=== PATIENT | female | born 1930 | race Caucasian/White ===

== ENCOUNTER 2017-09-01 11:32 | Inpatient (IN) ==
[2017-09-01 12:26] LABS: Basophils % 0.7 % (0.0-0.8); Eosinophils # 0.1 10*3/uL (0.0-0.87); Eosinophils % 1.4 % (0.00-10.9); Hematocrit 25.3 VOL% (35.7-47.0); Hemoglobin 7.6 GM/DL (12.0-16.0); Immature Granulocytes % 0.3 %; Immature Granulocytes Absolute 0.02 #; Lymphocytes # 1.4 10*3/uL (1.4-4.0); Lymphocytes % 24.3 % (21.3-54.2); Mean Corpuscular Hemoglobin 25 PG (27-34); Mean Corpuscular Volume 83.8 FL (87-102); Mean Platelet Volume 10.4 FL (9.6-12.0); Monocytes # 0.5 10*3/uL (0.11-0.8); Neutrophils # 3.8 10*3/uL (1.4-7.4); Neutrophils % 65.3 % (38.7-73.9); Platelet Count 169 T/CUMM (130-400); Red Blood Count 3.02 MC/CUMM (3.8-5.5); Red Cell Distribution Width 16.5 % (9.3-17.3); White Blood Count 5.8 T/CUMM (4-12)
[2017-09-01 12:33] LABS: INR 1.4; PT Patient Result 14.4 SECS
[2017-09-01 12:45] LABS: Apearance,Urine Slightly Hazy (Clear); Bacteria,Urine Many /HPF (Few); Bilirubin,Urine Negative (Negative); Blood, Urine Negative (Negative); Glucose,Urine (UA) Negative (Negative); Hyaline Casts,Urine 29 /LPF (0-3); Ketones,Urine Negative (Negative); Mucus,Urine Few /LPF (Occasional); Nitrite,Urine Positive (Negative); Protein,Urine Negative; RBC,Urine <1 /HPF (0-4); Squamous Epithelial Cell,Urine Occasional /HPF (0-10); Urine Color Yellow (Yellow); Urine Specific Gravity 1.014 (1.001-1.035); Urine Urobilinogen < 2.0 EU/DL (0.2-1.0); WBC,Urine 2 /HPF (0-6)
[2017-09-01 13:26] LABS: Albumin 2.5 G/DL (3.4-5.0); Bilirubin,Total 0.4 MG/DL (0.2-1.0); Magnesium 2.2 MG/DL (1.8-2.4); Osmolality,Calculated 292.4 MOS/KG (273-304); Potassium 4.2 MMOL/L (3.5-5.1); Total Protein 5.4 G/DL (6.4-8.3)
[2017-09-01] MEDS ORDERED: LEVOFLOXACIN INJ 500 MG in PREMIX 1 EACH IV STA (13:28)
[2017-09-01] MEDS ORDERED: SODIUM CHLORIDE 0.9% 1,000 ML IV PRN (13:37)
[2017-09-01] MEDS ORDERED: cefTRIAXone 1,000 MG VIAL IM SCH (14:00)
[2017-09-01] MEDS ORDERED: LEVOFLOXACIN INJ 100 ML IV ONE (14:01)
[2017-09-01] MEDS ORDERED: FUROSEMIDE 20 MG/2 ML VIAL IV ONE ×2 (14:12→22:30)
[2017-09-01] MEDS ORDERED: clonazePAM 0.5 MG TABLET PO PRN (16:11)
[2017-09-01] MEDS ORDERED: cefTRIAXone 1,000 MG VIAL IV SCH (16:15)
[2017-09-01] MEDS: cefTRIAXone 1,000 MG in SYRINGE 1 EACH IV SCH (17:19)
[2017-09-01] MEDS ORDERED: APIXABAN 5 MG TABLET PO SCH (21:00)
[2017-09-01] MEDS: LOVASTATIN 20 MG TABLET PO SCH (21:43)
[2017-09-01] MEDS: CARVEDILOL 3.125 MG TABLET PO SCH (21:43)
[2017-09-01] MEDS: ZINC SULFATE 220 MG CAPSULE PO SCH (21:43)
[2017-09-01] MEDS: GABAPENTIN 300 MG CAPSULE PO SCH (21:43)
[2017-09-02 05:55] LABS: Basophils % 0.4 % (0.0-0.8); Eosinophils # 0.1 10*3/uL (0.0-0.87); Eosinophils % 0.7 % (0.00-10.9); Hematocrit 29.3 VOL% (35.7-47.0); Hemoglobin 9.3 GM/DL (12.0-16.0); Immature Granulocytes % 0.3 %; Immature Granulocytes Absolute 0.02 #; Lymphocytes # 1.2 10*3/uL (1.4-4.0); Lymphocytes % 17.1 % (21.3-54.2); Mean Corpuscular HGB Conc 31.7 GM/DL (32-36); Mean Corpuscular Hemoglobin 26 PG (27-34); Mean Corpuscular Volume 81.6 FL (87-102); Mean Platelet Volume 10.6 FL (9.6-12.0); Monocytes # 0.7 10*3/uL (0.11-0.8); Monocytes % 9.1 % (1.7-12.7); Neutrophils # 5.2 10*3/uL (1.4-7.4); Neutrophils % 72.4 % (38.7-73.9); Platelet Count 175 T/CUMM (130-400); Red Blood Count 3.59 MC/CUMM (3.8-5.5); Red Cell Distribution Width 15.3 % (9.3-17.3); White Blood Count 7.2 T/CUMM (4-12)
[2017-09-02] MEDS ORDERED: LEVOTHYROXINE 150 MCG TABLET PO SCH (06:30)
[2017-09-02 06:34] LABS: Albumin 2.3 G/DL (3.4-5.0); Bilirubin,Total 0.8 MG/DL (0.2-1.0); Calcium 7.8 MG/DL (8.5-10.1); Magnesium 1.9 MG/DL (1.8-2.4); Osmolality,Calculated 289.6 MOS/KG (273-304); Phosphorous 3.4 MG/DL (2.5-4.9); Potassium 4.1 MMOL/L (3.5-5.1); Total Protein 4.9 G/DL (6.4-8.3)
[2017-09-02] MEDS ORDERED: LEVOTHYROXINE 175 MCG TABLET PO SCH (07:00)
[2017-09-02] MEDS ORDERED: FUROSEMIDE 40 MG TABLET PO SCH (09:00)
[2017-09-02] MEDS: FUROSEMIDE 40 MG/4 ML VIAL IV SCH (09:15)
[2017-09-02] MEDS: cefTRIAXone 1,000 MG in SYRINGE 1 EACH IV SCH (09:15)
[2017-09-02] MEDS ORDERED: TUBERCULIN SKIN TEST 0.1 ML SYRINGE INTRADERM ONE (11:00)
[2017-09-02] MEDS: CARVEDILOL 3.125 MG TABLET PO SCH ×2 (12:19→20:58)
[2017-09-02] MEDS ORDERED: PROPOFOL 200 MG/20 ML VIAL IV ONE (12:47)
[2017-09-02] MEDS ORDERED: LIDOCAINE 1% 5 ML VIAL ONE (12:47)
[2017-09-02] MEDS: CHOLECALCIFEROL 400 UNIT TABLET PO SCH (14:33)
[2017-09-02] MEDS: SPIRONOLACTONE 25 MG TABLET PO SCH (14:33)
[2017-09-02] MEDS: MULTIVITAMIN (CENTRUM) TABLET PO SCH (14:33)
[2017-09-02] MEDS: AMIODARONE 200 MG TABLET PO SCH (14:34)
[2017-09-02] MEDS: BISACODYL 5 MG TABLET PO SCH ×2 (14:34→20:59)
[2017-09-02] MEDS: LEVOTHYROXINE 175 MCG TABLET PO SCH (14:39)
[2017-09-02] MEDS ORDERED: POLYETHYLENE GLYCOL POWDER 255 GM BOTTLE PO ONE (17:00)
[2017-09-02] MEDS: ZINC SULFATE 220 MG CAPSULE PO SCH (20:58)
[2017-09-02] MEDS: LOVASTATIN 20 MG TABLET PO SCH (20:58)
[2017-09-02] MEDS: GABAPENTIN 300 MG CAPSULE PO SCH (20:59)
[2017-09-02] MEDS ORDERED: MAGNESIUM CITRATE 300 ML BOTTLE PO ONE (21:00)
[2017-09-03] MEDS ORDERED: ZINC OXIDE PASTE 113 GM TUBE TOP PRN (01:23)
[2017-09-03] MEDS: BISACODYL 5 MG TABLET PO SCH (04:48)
[2017-09-03 05:29] LABS: Basophils % 0.4 % (0.0-0.8); Eosinophils # 0.1 10*3/uL (0.0-0.87); Eosinophils % 0.6 % (0.00-10.9); Hematocrit 30.8 VOL% (35.7-47.0); Hemoglobin 9.6 GM/DL (12.0-16.0); Immature Granulocytes % 0.2 %; Immature Granulocytes Absolute 0.02 #; Lymphocytes # 1.7 10*3/uL (1.4-4.0); Lymphocytes % 20.1 % (21.3-54.2); Mean Corpuscular HGB Conc 31.2 GM/DL (32-36); Mean Corpuscular Hemoglobin 26 PG (27-34); Mean Corpuscular Volume 82.8 FL (87-102); Mean Platelet Volume 10.5 FL (9.6-12.0); Monocytes # 0.7 10*3/uL (0.11-0.8); Monocytes % 8.8 % (1.7-12.7); Neutrophils # 5.9 10*3/uL (1.4-7.4); Neutrophils % 69.9 % (38.7-73.9); Platelet Count 173 T/CUMM (130-400); Red Blood Count 3.72 MC/CUMM (3.8-5.5); Red Cell Distribution Width 15.9 % (9.3-17.3); White Blood Count 8.4 T/CUMM (4-12)
[2017-09-03 06:08] LABS: Albumin 2.2 G/DL (3.4-5.0); Bilirubin,Total 0.6 MG/DL (0.2-1.0); Calcium 7.7 MG/DL (8.5-10.1); Magnesium 1.9 MG/DL (1.8-2.4); Osmolality,Calculated 288.6 MOS/KG (273-304); Phosphorous 3.5 MG/DL (2.5-4.9); Potassium 3.7 MMOL/L (3.5-5.1); Total Protein 4.9 G/DL (6.4-8.3)
[2017-09-03] MEDS: LEVOTHYROXINE 175 MCG TABLET PO SCH (06:57)
[2017-09-03] MEDS: SPIRONOLACTONE 25 MG TABLET PO SCH (09:47)
[2017-09-03] MEDS: CARVEDILOL 3.125 MG TABLET PO SCH ×2 (09:48→21:57)
[2017-09-03] MEDS: CHOLECALCIFEROL 400 UNIT TABLET PO SCH (09:48)
[2017-09-03] MEDS: MULTIVITAMIN (CENTRUM) TABLET PO SCH (09:48)
[2017-09-03] MEDS: FUROSEMIDE 40 MG/4 ML VIAL IV SCH (09:48)
[2017-09-03] MEDS: AMIODARONE 200 MG TABLET PO SCH (09:48)
[2017-09-03] MEDS: cefTRIAXone 1,000 MG in SYRINGE 1 EACH IV SCH (09:48)
[2017-09-03] MEDS: COLESTIPOL 1 GM TABLET PO SCH ×2 (09:48→21:57)
[2017-09-03] MEDS ORDERED: PROPOFOL 200 MG/20 ML VIAL IV ONE (10:10)
[2017-09-03] MEDS ORDERED: LIDOCAINE 2% 5 ML VIAL ONE (10:10)
[2017-09-03] MEDS: CIPROFLOXACIN INJ 400 MG in PREMIX 1 EACH IV SCH (12:31)
[2017-09-03] MEDS: ZINC SULFATE 220 MG CAPSULE PO SCH (21:57)
[2017-09-03] MEDS: GABAPENTIN 300 MG CAPSULE PO SCH (21:57)
[2017-09-03] MEDS: LOVASTATIN 20 MG TABLET PO SCH (21:58)
[2017-09-04] MEDS: CIPROFLOXACIN INJ 400 MG in PREMIX 1 EACH IV SCH ×2 (01:59→13:53)
[2017-09-04 05:53] LABS: Basophils % 0.4 % (0.0-0.8); Eosinophils # 0.1 10*3/uL (0.0-0.87); Eosinophils % 0.9 % (0.00-10.9); Hematocrit 31.3 VOL% (35.7-47.0); Hemoglobin 9.7 GM/DL (12.0-16.0); Immature Granulocytes % 0.3 %; Immature Granulocytes Absolute 0.03 #; Lymphocytes # 1.9 10*3/uL (1.4-4.0); Lymphocytes % 21.2 % (21.3-54.2); Mean Corpuscular Hemoglobin 25 PG (27-34); Mean Corpuscular Volume 81.9 FL (87-102); Mean Platelet Volume 10.9 FL (9.6-12.0); Monocytes # 0.8 10*3/uL (0.11-0.8); Monocytes % 9.2 % (1.7-12.7); Neutrophils # 6.1 10*3/uL (1.4-7.4); Platelet Count 178 T/CUMM (130-400); Red Blood Count 3.82 MC/CUMM (3.8-5.5); Red Cell Distribution Width 16.1 % (9.3-17.3); White Blood Count 8.9 T/CUMM (4-12)
[2017-09-04] MEDS: LEVOTHYROXINE 175 MCG TABLET PO SCH (06:08)
[2017-09-04 06:26] LABS: Albumin 2.1 G/DL (3.4-5.0); Bilirubin,Total 0.6 MG/DL (0.2-1.0); Calcium 7.4 MG/DL (8.5-10.1); Magnesium 1.7 MG/DL (1.8-2.4); Osmolality,Calculated 283.8 MOS/KG (273-304); Phosphorous 2.9 MG/DL (2.5-4.9); Potassium 3.4 MMOL/L (3.5-5.1); Total Protein 4.7 G/DL (6.4-8.3)
[2017-09-04] MEDS: MULTIVITAMIN (CENTRUM) TABLET PO SCH (10:25)
[2017-09-04] MEDS: SPIRONOLACTONE 25 MG TABLET PO SCH (10:25)
[2017-09-04] MEDS: CARVEDILOL 3.125 MG TABLET PO SCH ×2 (10:26→22:05)
[2017-09-04] MEDS: COLESTIPOL 1 GM TABLET PO SCH ×2 (10:26→22:05)
[2017-09-04] MEDS: FUROSEMIDE 40 MG/4 ML VIAL IV SCH ×2 (10:27→15:33)
[2017-09-04] MEDS: CHOLECALCIFEROL 400 UNIT TABLET PO SCH (10:27)
[2017-09-04] MEDS: AMIODARONE 200 MG TABLET PO SCH (10:27)
[2017-09-04] MEDS ORDERED: POTASSIUM CHLORIDE 20 MEQ TABLET PO ONE (11:03)
[2017-09-04] MEDS ORDERED: PANTOPRAZOLE 40 MG TABLET PO SCH (19:00)
[2017-09-04] MEDS: MAGNESIUM OXIDE 400 MG TABLET PO SCH (22:05)
[2017-09-04] MEDS: LOVASTATIN 20 MG TABLET PO SCH (22:05)
[2017-09-04] MEDS: ZINC SULFATE 220 MG CAPSULE PO SCH (22:05)
[2017-09-04] MEDS: PANTOPRAZOLE 40 MG TABLET PO SCH (22:06)
[2017-09-04] MEDS: GABAPENTIN 300 MG CAPSULE PO SCH (22:06)
[2017-09-05] MEDS: CIPROFLOXACIN INJ 400 MG in PREMIX 1 EACH IV SCH ×2 (01:06→14:35)
[2017-09-05] MEDS: ONDANSETRON 4 MG/2 ML VIAL IV PRN ×2 (01:45→14:55)
[2017-09-05 05:20] LABS: Basophils % 0.3 % (0.0-0.8); Eosinophils # 0.1 10*3/uL (0.0-0.87); Eosinophils % 0.5 % (0.00-10.9); Hematocrit 31.4 VOL% (35.7-47.0); Hemoglobin 9.8 GM/DL (12.0-16.0); Immature Granulocytes % 0.4 %; Immature Granulocytes Absolute 0.04 #; Lymphocytes # 1.7 10*3/uL (1.4-4.0); Lymphocytes % 17.7 % (21.3-54.2); Mean Corpuscular HGB Conc 31.2 GM/DL (32-36); Mean Corpuscular Hemoglobin 25 PG (27-34); Mean Corpuscular Volume 81.3 FL (87-102); Mean Platelet Volume 10.4 FL (9.6-12.0); Monocytes % 10.2 % (1.7-12.7); Neutrophils # 6.9 10*3/uL (1.4-7.4); Neutrophils % 70.9 % (38.7-73.9); Platelet Count 164 T/CUMM (130-400); Red Blood Count 3.86 MC/CUMM (3.8-5.5); Red Cell Distribution Width 16.1 % (9.3-17.3); White Blood Count 9.8 T/CUMM (4-12)
[2017-09-05 05:51] LABS: Albumin 2.2 G/DL (3.4-5.0); Bilirubin,Total 0.7 MG/DL (0.2-1.0); Calcium 7.6 MG/DL (8.5-10.1); Magnesium 1.7 MG/DL (1.8-2.4); Osmolality,Calculated 279.3 MOS/KG (273-304); Potassium 3.9 MMOL/L (3.5-5.1); Total Protein 4.8 G/DL (6.4-8.3)
[2017-09-05] MEDS: LEVOTHYROXINE 175 MCG TABLET PO SCH (06:32)
[2017-09-05] MEDS: MAGNESIUM OXIDE 400 MG TABLET PO SCH ×2 (09:12→23:00)
[2017-09-05] MEDS: CHOLECALCIFEROL 400 UNIT TABLET PO SCH (09:12)
[2017-09-05] MEDS: FUROSEMIDE 40 MG/4 ML VIAL IV SCH ×2 (09:12→13:25)
[2017-09-05] MEDS: SPIRONOLACTONE 25 MG TABLET PO SCH (09:12)
[2017-09-05] MEDS: MULTIVITAMIN (CENTRUM) TABLET PO SCH (09:12)
[2017-09-05] MEDS: CARVEDILOL 3.125 MG TABLET PO SCH ×2 (09:12→22:59)
[2017-09-05] MEDS: AMIODARONE 200 MG TABLET PO SCH (09:12)
[2017-09-05] MEDS: COLESTIPOL 1 GM TABLET PO SCH ×2 (09:12→22:58)
[2017-09-05] MEDS: PANTOPRAZOLE 40 MG TABLET PO SCH ×2 (09:12→22:59)
[2017-09-05] MEDS ORDERED: MAGNESIUM SULF RIDER 1 GM in PREMIX 1 EACH IV ONE (12:00)
[2017-09-05] MEDS: FUROSEMIDE 40 MG TABLET PO SCH (15:58)
[2017-09-05] MEDS: ZINC SULFATE 220 MG CAPSULE PO SCH (22:59)
[2017-09-05] MEDS: LOVASTATIN 20 MG TABLET PO SCH (22:59)
[2017-09-05] MEDS: GABAPENTIN 300 MG CAPSULE PO SCH (23:00)
[2017-09-06] MEDS: CIPROFLOXACIN INJ 400 MG in PREMIX 1 EACH IV SCH ×2 (01:07→18:07)
[2017-09-06] MEDS: LEVOTHYROXINE 175 MCG TABLET PO SCH (05:35)
[2017-09-06 05:52] LABS: Basophils % 0.5 % (0.0-0.8); Eosinophils # 0.1 10*3/uL (0.0-0.87); Eosinophils % 1.1 % (0.00-10.9); Hematocrit 29.6 VOL% (35.7-47.0); Hemoglobin 9.3 GM/DL (12.0-16.0); Immature Granulocytes % 0.5 %; Immature Granulocytes Absolute 0.04 #; Lymphocytes # 1.7 10*3/uL (1.4-4.0); Lymphocytes % 22.5 % (21.3-54.2); Mean Corpuscular HGB Conc 31.4 GM/DL (32-36); Mean Corpuscular Hemoglobin 26 PG (27-34); Mean Corpuscular Volume 82.5 FL (87-102); Mean Platelet Volume 10.7 FL (9.6-12.0); Monocytes # 0.7 10*3/uL (0.11-0.8); Monocytes % 9.6 % (1.7-12.7); Neutrophils # 4.9 10*3/uL (1.4-7.4); Neutrophils % 65.8 % (38.7-73.9); Platelet Count 134 T/CUMM (130-400); Red Blood Count 3.59 MC/CUMM (3.8-5.5); Red Cell Distribution Width 16.2 % (9.3-17.3); White Blood Count 7.5 T/CUMM (4-12)
[2017-09-06 06:38] LABS: Albumin 1.9 G/DL (3.4-5.0); Bilirubin,Total 0.5 MG/DL (0.2-1.0); Calcium 7.5 MG/DL (8.5-10.1); Osmolality,Calculated 280.4 MOS/KG (273-304); Phosphorous 2.9 MG/DL (2.5-4.9); Potassium 3.8 MMOL/L (3.5-5.1); Total Protein 4.4 G/DL (6.4-8.3)
[2017-09-06] MEDS: SPIRONOLACTONE 25 MG TABLET PO SCH (09:50)
[2017-09-06] MEDS: COLESTIPOL 1 GM TABLET PO SCH ×2 (09:50→21:29)
[2017-09-06] MEDS: MULTIVITAMIN (CENTRUM) TABLET PO SCH (09:50)
[2017-09-06] MEDS: CHOLECALCIFEROL 400 UNIT TABLET PO SCH (09:50)
[2017-09-06] MEDS: CARVEDILOL 3.125 MG TABLET PO SCH ×2 (09:50→21:30)
[2017-09-06] MEDS: MAGNESIUM OXIDE 400 MG TABLET PO SCH ×2 (09:50→21:30)
[2017-09-06] MEDS: AMIODARONE 200 MG TABLET PO SCH (09:51)
[2017-09-06] MEDS: PANTOPRAZOLE 40 MG TABLET PO SCH ×2 (09:51→21:29)
[2017-09-06] MEDS: FUROSEMIDE 40 MG TABLET PO SCH ×2 (09:51→18:07)
[2017-09-06] MEDS: ZINC SULFATE 220 MG CAPSULE PO SCH (21:30)
[2017-09-06] MEDS: LOVASTATIN 20 MG TABLET PO SCH (21:30)
[2017-09-06] MEDS: GABAPENTIN 300 MG CAPSULE PO SCH (21:31)
[2017-09-07 05:47] LABS: Calcium 7.5 MG/DL (8.5-10.1); Osmolality,Calculated 276.7 MOS/KG (273-304)
[2017-09-07] MEDS: LEVOTHYROXINE 175 MCG TABLET PO SCH (05:48)
[2017-09-07] MEDS: MAGNESIUM OXIDE 400 MG TABLET PO SCH ×2 (09:40→23:14)
[2017-09-07] MEDS: AMIODARONE 200 MG TABLET PO SCH (10:17)
[2017-09-07] MEDS: SPIRONOLACTONE 25 MG TABLET PO SCH (10:17)
[2017-09-07] MEDS: CHOLECALCIFEROL 400 UNIT TABLET PO SCH (10:18)
[2017-09-07] MEDS: PANTOPRAZOLE 40 MG TABLET PO SCH ×2 (10:18→23:14)
[2017-09-07] MEDS: COLESTIPOL 1 GM TABLET PO SCH ×2 (10:18→23:14)
[2017-09-07] MEDS: MULTIVITAMIN (CENTRUM) TABLET PO SCH (10:18)
[2017-09-07] MEDS: CARVEDILOL 3.125 MG TABLET PO SCH ×2 (10:18→23:14)
[2017-09-07] MEDS: FUROSEMIDE 40 MG TABLET PO SCH ×2 (10:18→16:53)
[2017-09-07] MEDS: CIPROFLOXACIN INJ 400 MG in PREMIX 1 EACH IV SCH ×2 (10:19→23:15)
[2017-09-07 10:39] LABS: Lymphocytes,Pleural Fluid 72 %; Monocytes,Pleural Fluid 9 %; Neutrophils,Pleural Fluid 19 %; RBC,Pleural Fluid 795 T/CUMM
[2017-09-07] MEDS: ZINC SULFATE 220 MG CAPSULE PO SCH (23:13)
[2017-09-07] MEDS: GABAPENTIN 300 MG CAPSULE PO SCH (23:14)
[2017-09-07] MEDS: LOVASTATIN 20 MG TABLET PO SCH (23:14)
[2017-09-08] MEDS: LEVOTHYROXINE 175 MCG TABLET PO SCH (06:22)
[2017-09-08 07:54] LABS: Calcium 7.2 MG/DL (8.5-10.1); Osmolality,Calculated 275.8 MOS/KG (273-304); Potassium 4.1 MMOL/L (3.5-5.1)
[2017-09-08] MEDS: COLESTIPOL 1 GM TABLET PO SCH ×2 (10:43→21:47)
[2017-09-08] MEDS: PANTOPRAZOLE 40 MG TABLET PO SCH ×2 (10:43→21:52)
[2017-09-08] MEDS: MAGNESIUM OXIDE 400 MG TABLET PO SCH ×2 (10:44→21:45)
[2017-09-08] MEDS: MULTIVITAMIN (CENTRUM) TABLET PO SCH (10:44)
[2017-09-08] MEDS: SPIRONOLACTONE 25 MG TABLET PO SCH (10:44)
[2017-09-08] MEDS: CHOLECALCIFEROL 400 UNIT TABLET PO SCH (10:44)
[2017-09-08] MEDS: FUROSEMIDE 40 MG TABLET PO SCH ×2 (10:44→17:05)
[2017-09-08] MEDS: CARVEDILOL 3.125 MG TABLET PO SCH ×2 (10:45→21:44)
[2017-09-08] MEDS: AMIODARONE 200 MG TABLET PO SCH (10:45)
[2017-09-08] MEDS: LOVASTATIN 20 MG TABLET PO SCH (21:44)
[2017-09-08] MEDS: ZINC SULFATE 220 MG CAPSULE PO SCH (21:45)
[2017-09-08] MEDS: GABAPENTIN 300 MG CAPSULE PO SCH (21:46)
[2017-09-09 05:23] LABS: Calcium 7.5 MG/DL (8.5-10.1); Osmolality,Calculated 282.5 MOS/KG (273-304); Potassium 3.9 MMOL/L (3.5-5.1)
[2017-09-09] MEDS: LEVOTHYROXINE 175 MCG TABLET PO SCH (06:51)
[2017-09-09] MEDS: AMIODARONE 200 MG TABLET PO SCH (09:20)
[2017-09-09] MEDS: MAGNESIUM OXIDE 400 MG TABLET PO SCH (09:20)
[2017-09-09] MEDS: MULTIVITAMIN (CENTRUM) TABLET PO SCH (09:20)
[2017-09-09] MEDS: COLESTIPOL 1 GM TABLET PO SCH (09:20)
[2017-09-09] MEDS: CARVEDILOL 3.125 MG TABLET PO SCH (09:20)
[2017-09-09] MEDS: SPIRONOLACTONE 25 MG TABLET PO SCH (09:20)
[2017-09-09] MEDS: CHOLECALCIFEROL 400 UNIT TABLET PO SCH (09:21)
[2017-09-09] MEDS: PANTOPRAZOLE 40 MG TABLET PO SCH (09:21)
[2017-09-09] MEDS: FUROSEMIDE 40 MG TABLET PO SCH (09:26)
[2017-09-09 12:24] VITALS: BP 143/68
== END 2017-09-09 14:09 | disposition swing bed (61) | DRG 377 ==
LOC: EDBD → EDUNIT# → N.ED 11:32 → N.EDINP 13:31 → SUATTDRO 13:31 → N.EDINP 15:37 → N.2E 15:50
PROVIDERS: ADMIT Internal Medicine; ATTEND Internal Medicine

== ENCOUNTER 2017-12-05 21:35 | Inpatient (IN) ==
[2017-12-05] MEDS ORDERED: SODIUM CHLORIDE 0.9% 1,000 ML IV STA (22:43)
[2017-12-05] MEDS ORDERED: ONDANSETRON 4 MG/2 ML VIAL IV STA (22:43)
[2017-12-05 22:51] LABS: Basophils % 0.7 % (0.0-0.8); Eosinophils # 0.1 10*3/uL (0.0-0.87); Hematocrit 30.3 VOL% (35.7-47.0); Hemoglobin 9.4 GM/DL (12.0-16.0); Immature Granulocytes % 0.5 %; Immature Granulocytes Absolute 0.03 #; Lymphocytes # 2.1 10*3/uL (1.4-4.0); Lymphocytes % 34.3 % (21.3-54.2); Mean Corpuscular Hemoglobin 29 PG (27-34); Mean Corpuscular Volume 94.4 FL (87-102); Mean Platelet Volume 10.4 FL (9.6-12.0); Monocytes # 0.6 10*3/uL (0.11-0.8); Monocytes % 9.1 % (1.7-12.7); Neutrophils # 3.3 10*3/uL (1.4-7.4); Neutrophils % 54.4 % (38.7-73.9); Platelet Count 177 T/CUMM (130-400); Red Blood Count 3.21 MC/CUMM (3.8-5.5); Red Cell Distribution Width 19.9 % (9.3-17.3); White Blood Count 6.1 T/CUMM (4-12)
[2017-12-05 22:59] LABS: Apearance,Urine Slightly Hazy (Clear); Bacteria,Urine Few /HPF (Few); Bilirubin,Urine Negative (Negative); Blood, Urine Negative (Negative); Glucose,Urine (UA) Negative (Negative); Hyaline Casts,Urine 12 /LPF (0-3); Ketones,Urine Negative (Negative); Mucus,Urine Occasional /LPF (Occasional); Nitrite,Urine Negative (Negative); Protein,Urine 100 MG/DL; RBC,Urine 2 /HPF (0-4); Squamous Epithelial Cell,Urine Occasional /HPF (0-10); Urine Color Yellow (Yellow); Urine Specific Gravity 1.018 (1.001-1.035); Urine Urobilinogen < 2.0 EU/DL (0.2-1.0)
[2017-12-05] MEDS ORDERED: ONDANSETRON 4 MG/2 ML VIAL ONE (23:18)
[2017-12-05 23:25] LABS: Bilirubin,Total 0.8 MG/DL (0.2-1.0); Calcium 8.5 MG/DL (8.5-10.1); Osmolality,Calculated 286.7 MOS/KG (273-304); Potassium 4.3 MMOL/L (3.5-5.1); Total Protein 6.2 G/DL (6.4-8.3)
[2017-12-06] MEDS ORDERED: ONDANSETRON 4 MG/2 ML VIAL IV PRN (03:11)
[2017-12-06] MEDS ORDERED: VANCOMYCIN INJ 1,000 MG in SODIUM CHLORIDE 0.9% 250 ML IV SCH (03:30)
[2017-12-06] MEDS ORDERED: VANCOMYCIN 1,000 MG VIAL ONE (03:37)
[2017-12-06] MEDS ORDERED: FUROSEMIDE 20 MG/2 ML VIAL IV STA (05:07)
[2017-12-06 08:04] LABS: Calcium 8.2 MG/DL (8.5-10.1); Osmolality,Calculated 287.6 MOS/KG (273-304); Potassium 4.2 MMOL/L (3.5-5.1); Thyroid Stimulating Hormone 11.4 uIU/ml (0.358-3.74)
[2017-12-06] MEDS ORDERED: ENOXAPARIN 40 MG/0.4 ML SYRINGE SUBCUT SCH (09:00)
[2017-12-06] MEDS ORDERED: ZINC OXIDE PASTE 113 GM TUBE TOP PRN (11:52)
[2017-12-06] MEDS ORDERED: MAGNESIUM OXIDE 400 MG TABLET PO ONE (13:00)
[2017-12-06] MEDS: CEFUROXIME 500 MG TABLET PO SCH (20:37)
[2017-12-06] MEDS: PANTOPRAZOLE 40 MG TABLET PO SCH (20:37)
[2017-12-06] MEDS: APIXABAN 2.5 MG TABLET PO SCH (20:37)
[2017-12-06] MEDS: GABAPENTIN 300 MG CAPSULE PO SCH (20:38)
[2017-12-07] MEDS ORDERED: ACETAMINOPHEN 325 MG TABLET PO PRN (04:45)
[2017-12-07] MEDS: LEVOTHYROXINE 175 MCG TABLET PO SCH (05:43)
[2017-12-07] MEDS ORDERED: CEFIXIME 400 MG PO SCH (09:00)
[2017-12-07] MEDS: CEFUROXIME 500 MG TABLET PO SCH ×2 (09:36→21:32)
[2017-12-07] MEDS: APIXABAN 2.5 MG TABLET PO SCH ×2 (09:37→21:33)
[2017-12-07] MEDS: AMIODARONE 200 MG TABLET PO SCH (09:37)
[2017-12-07] MEDS: GABAPENTIN 300 MG CAPSULE PO SCH ×2 (09:37→21:33)
[2017-12-07] MEDS: FUROSEMIDE 20 MG TABLET PO SCH (09:37)
[2017-12-07] MEDS: traZODone 50 MG TABLET PO SCH (09:37)
[2017-12-07] MEDS ORDERED: ALBUTEROL 2.5 MG/3 ML NEB RESP TX PRN (11:00)
[2017-12-07] MEDS ORDERED: FUROSEMIDE 20 MG/2 ML VIAL IV ONE (11:30)
[2017-12-07] MEDS ORDERED: TUBERCULIN SKIN TEST 0.1 ML SYRINGE INTRADERM ONE ×2 (11:30→12:21)
[2017-12-07] MEDS ORDERED: MAGNESIUM OXIDE 400 MG TABLET PO ONE (11:30)
[2017-12-07] MEDS ORDERED: SKIN HEALING OINT (AQUAPHOR) 50 GM TUBE TOP PRN (11:33)
[2017-12-07] MEDS: PANTOPRAZOLE 40 MG TABLET PO SCH ×2 (14:16→21:33)
[2017-12-07] MEDS: CARVEDILOL 25 MG TABLET PO SCH (17:11)
[2017-12-07] MEDS: clonazePAM 0.5 MG TABLET PO SCH (21:33)
[2017-12-07] MEDS: COLESTIPOL 1 GM TABLET PO SCH (21:33)
[2017-12-07] MEDS: SPIRONOLACTONE 25 MG TABLET PO SCH (21:33)
[2017-12-07] MEDS: ATORVASTATIN 20 MG TABLET PO SCH (21:47)
[2017-12-08] MEDS: LEVOTHYROXINE 175 MCG TABLET PO SCH (05:34)
[2017-12-08] MEDS: CARVEDILOL 25 MG TABLET PO SCH ×2 (09:24→16:53)
[2017-12-08] MEDS: SPIRONOLACTONE 25 MG TABLET PO SCH ×2 (09:24→20:41)
[2017-12-08] MEDS: clonazePAM 0.5 MG TABLET PO SCH ×2 (09:24→20:40)
[2017-12-08] MEDS: FUROSEMIDE 20 MG TABLET PO SCH (09:24)
[2017-12-08] MEDS: CEFUROXIME 500 MG TABLET PO SCH ×2 (09:24→20:39)
[2017-12-08] MEDS: APIXABAN 2.5 MG TABLET PO SCH ×2 (09:25→20:40)
[2017-12-08] MEDS: AMIODARONE 200 MG TABLET PO SCH (09:25)
[2017-12-08] MEDS: PANTOPRAZOLE 40 MG TABLET PO SCH ×2 (09:25→20:42)
[2017-12-08] MEDS: COLESTIPOL 1 GM TABLET PO SCH ×2 (09:25→20:39)
[2017-12-08] MEDS: traZODone 50 MG TABLET PO SCH (09:25)
[2017-12-08] MEDS: GABAPENTIN 300 MG CAPSULE PO SCH ×2 (09:25→20:41)
[2017-12-08] MEDS ORDERED: TUBERCULIN SKIN TEST 0.1 ML SYRINGE INTRADERM ONE (14:29)
[2017-12-08] MEDS: ATORVASTATIN 20 MG TABLET PO SCH (20:40)
[2017-12-08] MEDS ORDERED: DOCUSATE SODIUM 100 MG CAPSULE PO SCH (23:30)
[2017-12-09] MEDS: LEVOTHYROXINE 175 MCG TABLET PO SCH (05:30)
[2017-12-09 06:46] LABS: Basophils % 0.2 % (0.0-0.8); Eosinophils # 0.1 10*3/uL (0.0-0.87); Eosinophils % 1.1 % (0.00-10.9); Hematocrit 25.3 VOL% (35.7-47.0); Immature Granulocytes % 0.4 %; Immature Granulocytes Absolute 0.02 #; Lymphocytes # 2.1 10*3/uL (1.4-4.0); Lymphocytes % 47.3 % (21.3-54.2); Mean Corpuscular HGB Conc 31.6 GM/DL (32-36); Mean Corpuscular Hemoglobin 29 PG (27-34); Mean Corpuscular Volume 92.3 FL (87-102); Mean Platelet Volume 11.1 FL (9.6-12.0); Monocytes # 0.5 10*3/uL (0.11-0.8); Monocytes % 10.2 % (1.7-12.7); Neutrophils # 1.8 10*3/uL (1.4-7.4); Neutrophils % 40.8 % (38.7-73.9); Platelet Count 162 T/CUMM (130-400); Red Blood Count 2.74 MC/CUMM (3.8-5.5); Red Cell Distribution Width 18.9 % (9.3-17.3); White Blood Count 4.5 T/CUMM (4-12)
[2017-12-09 07:08] LABS: Albumin 2.2 G/DL (3.4-5.0); Bilirubin,Total 0.5 MG/DL (0.2-1.0); Calcium 7.8 MG/DL (8.5-10.1); Osmolality,Calculated 280.3 MOS/KG (273-304); Total Protein 4.7 G/DL (6.4-8.3)
[2017-12-09] MEDS ORDERED: MAGNESIUM SULF RIDER 2 GM in PREMIX 1 EACH IV ONE (09:00)
[2017-12-09] MEDS: AMIODARONE 200 MG TABLET PO SCH (09:10)
[2017-12-09] MEDS: clonazePAM 0.5 MG TABLET PO SCH (09:10)
[2017-12-09] MEDS: COLESTIPOL 1 GM TABLET PO SCH (09:11)
[2017-12-09] MEDS: traZODone 50 MG TABLET PO SCH (09:11)
[2017-12-09] MEDS: PANTOPRAZOLE 40 MG TABLET PO SCH (09:11)
[2017-12-09] MEDS: CEFUROXIME 500 MG TABLET PO SCH (09:11)
[2017-12-09] MEDS: SPIRONOLACTONE 25 MG TABLET PO SCH (09:11)
[2017-12-09] MEDS: GABAPENTIN 300 MG CAPSULE PO SCH (09:13)
[2017-12-09] MEDS: APIXABAN 2.5 MG TABLET PO SCH (09:14)
[2017-12-09] MEDS: FUROSEMIDE 20 MG TABLET PO SCH (09:14)
[2017-12-09] MEDS: CARVEDILOL 25 MG TABLET PO SCH (09:14)
[2017-12-09 12:21] VITALS: BP 158/70
== END 2017-12-09 12:22 | DRG 392 ==
LOC: N.ED 21:35 → SUATTDRO 12-06 03:11 → N.EDINP 12-06 03:11 → N.2E 12-06 04:19
PROVIDERS: ADMIT Internal Medicine; ATTEND Internal Medicine

== ENCOUNTER 2020-11-23 10:54 | Inpatient (IN) ==
[2020-11-23 12:05] LABS: Bilirubin,Urine Negative (Negative); Blood, Urine Negative (Negative); Glucose,Urine (UA) Negative (Negative); Hyaline Casts,Urine 1 /LPF (0-3); Ketones,Urine 5 mg/dL (Negative); Mucus,Urine Occasional /LPF (Occasional); Nitrite,Urine Negative (Negative); Protein,Urine Negative; RBC,Urine <1 /HPF (0-4); Urine Appearance CLEAR (Clear); Urine Color Yellow (Yellow); Urine Specific Gravity 1.015 (1.001-1.035); Urine Urobilinogen < 2.0 EU/DL (0.2-1.0); WBC,Urine <1 /HPF (0-6)
[2020-11-23 12:29] LABS: Basophils % 0.5 % (0.0-0.8); Eosinophils % 0.8 % (0.00-10.9); Hematocrit 32.7 VOL% (35.7-47.0); Hemoglobin 10.2 GM/DL (12.0-16.0); Immature Granulocytes % 0.3 %; Immature Granulocytes Absolute 0.01 #; Lymphocytes % 26.4 % (21.3-54.2); Mean Corpuscular HGB Conc 31.2 GM/DL (32-36); Mean Corpuscular Volume 96.2 FL (87-102); Mean Platelet Volume 10.1 FL (9.6-12.0); Monocytes % 3.5 % (1.7-12.7); Neutrophils % 68.5 % (38.7-73.9); Platelet Count 119 T/CUMM (130-400); White Blood Count 3.7 T/CUMM (4-12)
[2020-11-23] MEDS ORDERED: FUROSEMIDE 40 MG/4 ML VIAL IV STA (12:37)
[2020-11-23 12:56] LABS: Albumin 3.1 G/DL (3.4-5.0); Bilirubin,Total 0.6 MG/DL (0.2-1.0); Osmolality,Calculated 270.7 MOS/KG (273-304); Potassium 5.2 MMOL/L (3.5-5.1); Total Protein 5.8 G/DL (5.0-7.5)
[2020-11-23] MEDS ORDERED: DEXTROSE 50% 25 GM/50 ML VIAL IV PRN (14:42)
[2020-11-23] MEDS ORDERED: guaiFENesin/DM ER 600-30 MG TABLET PO PRN (14:42)
[2020-11-23] MEDS ORDERED: GLUCAGON 1 MG VIAL IM PRN (14:42)
[2020-11-23] MEDS ORDERED: diphenhydrAMINE CAP 25 MG CAPSULE PO PRN (14:42)
[2020-11-23] MEDS ORDERED: DOCUSATE SODIUM 100 MG CAPSULE PO PRN (14:42)
[2020-11-23] MEDS: COLESTIPOL 1 GM TABLET PO SCH (21:00)
[2020-11-23] MEDS: clonazePAM 0.5 MG TABLET PO SCH (21:00)
[2020-11-23] MEDS: ATORVASTATIN 20 MG TABLET PO SCH (21:01)
[2020-11-23] MEDS: traZODone 50 MG TABLET PO SCH (21:01)
[2020-11-23] MEDS: ESCITALOPRAM 10 MG TABLET PO SCH (21:01)
[2020-11-23] MEDS: GABAPENTIN 400 MG CAPSULE PO SCH (21:01)
[2020-11-23] MEDS: APIXABAN 2.5 MG TABLET PO SCH (21:01)
[2020-11-23] MEDS: carvediloL 12.5 MG TABLET PO SCH (21:20)
[2020-11-23] MEDS: TRAVOPROST 0.004% OPH SOLN 2.5 ML BOTTLE BOTH EYES SCH (21:20)
[2020-11-24 05:55] LABS: Basophils % 0.8 % (0.0-0.8); Eosinophils # 0.1 10*3/uL (0.0-0.87); Hematocrit 29.8 VOL% (35.7-47.0); Hemoglobin 9.5 GM/DL (12.0-16.0); Immature Granulocytes % 0.4 %; Immature Granulocytes Absolute 0.02 #; Lymphocytes # 1.6 10*3/uL (1.4-4.0); Lymphocytes % 33.3 % (21.3-54.2); Mean Corpuscular HGB Conc 31.9 GM/DL (32-36); Mean Corpuscular Volume 93.7 FL (87-102); Mean Platelet Volume 9.8 FL (9.6-12.0); Monocytes % 8.6 % (1.7-12.7); Neutrophils % 55.9 % (38.7-73.9); Platelet Count 129 T/CUMM (130-400); Red Blood Count 3.18 MC/CUMM (3.8-5.5); Red Cell Distribution Width 14.8 % (9.3-17.3); White Blood Count 4.9 T/CUMM (4-12)
[2020-11-24 06:50] LABS: Calcium 8.4 MG/DL (8.5-10.1); Osmolality,Calculated 274.2 MOS/KG (273-304); Potassium 4.4 MMOL/L (3.5-5.1); Thyroid Stimulating Hormone 1.71 uIU/ml (0.358-3.74)
[2020-11-24] MEDS: carvediloL 12.5 MG TABLET PO SCH ×2 (08:05→20:42)
[2020-11-24] MEDS: lisinopriL 10 MG TABLET PO SCH (08:05)
[2020-11-24] MEDS: LEVOTHYROXINE 200 MCG TABLET PO SCH (09:14)
[2020-11-24] MEDS: MAGNESIUM OXIDE 400 MG TABLET PO SCH (09:15)
[2020-11-24] MEDS: AMIODARONE 200 MG TABLET PO SCH (09:15)
[2020-11-24] MEDS: COLESTIPOL 1 GM TABLET PO SCH ×2 (09:15→20:40)
[2020-11-24] MEDS: FERROUS SULFATE 325 MG TABLET PO SCH (09:15)
[2020-11-24] MEDS: APIXABAN 2.5 MG TABLET PO SCH ×2 (09:16→20:41)
[2020-11-24] MEDS: PANTOPRAZOLE 40 MG TABLET PO SCH (09:16)
[2020-11-24] MEDS: LORATADINE 10 MG TABLET PO SCH (09:16)
[2020-11-24] MEDS: FUROSEMIDE 40 MG/4 ML VIAL IV SCH ×2 (09:23→16:47)
[2020-11-24] MEDS: POLYVINYL ALCOHOL 1.4% OPH SOLN 15 ML BOTTLE BOTH EYES PRN (09:40)
[2020-11-24] MEDS: LACTULOSE 20 GM/30 ML UDCUP PO PRN (14:58)
[2020-11-24] MEDS: GABAPENTIN 400 MG CAPSULE PO SCH (20:40)
[2020-11-24] MEDS: ATORVASTATIN 20 MG TABLET PO SCH (20:40)
[2020-11-24] MEDS: clonazePAM 0.5 MG TABLET PO SCH (20:41)
[2020-11-24] MEDS: traZODone 50 MG TABLET PO SCH (20:41)
[2020-11-24] MEDS: ESCITALOPRAM 10 MG TABLET PO SCH (20:41)
[2020-11-24] MEDS: TRAVOPROST 0.004% OPH SOLN 2.5 ML BOTTLE BOTH EYES SCH (20:45)
[2020-11-25 06:03] LABS: Basophils % 0.8 % (0.0-0.8); Eosinophils # 0.1 10*3/uL (0.0-0.87); Eosinophils % 1.2 % (0.00-10.9); Hematocrit 30.8 VOL% (35.7-47.0); Hemoglobin 9.6 GM/DL (12.0-16.0); Immature Granulocytes % 0.2 %; Immature Granulocytes Absolute 0.01 #; Lymphocytes # 1.7 10*3/uL (1.4-4.0); Lymphocytes % 33.3 % (21.3-54.2); Mean Corpuscular HGB Conc 31.2 GM/DL (32-36); Mean Platelet Volume 9.8 FL (9.6-12.0); Monocytes % 9.2 % (1.7-12.7); Neutrophils % 55.3 % (38.7-73.9); Platelet Count 136 T/CUMM (130-400); Red Blood Count 3.21 MC/CUMM (3.8-5.5); Red Cell Distribution Width 15.1 % (9.3-17.3)
[2020-11-25 06:27] LABS: Calcium 8.1 MG/DL (8.5-10.1); Osmolality,Calculated 287.3 MOS/KG (273-304); Potassium 4.1 MMOL/L (3.5-5.1)
[2020-11-25] MEDS: MAGNESIUM OXIDE 400 MG TABLET PO SCH (08:52)
[2020-11-25] MEDS: COLESTIPOL 1 GM TABLET PO SCH ×2 (08:52→21:39)
[2020-11-25] MEDS: AMIODARONE 200 MG TABLET PO SCH (08:52)
[2020-11-25] MEDS: LORATADINE 10 MG TABLET PO SCH (08:52)
[2020-11-25] MEDS: APIXABAN 2.5 MG TABLET PO SCH ×2 (08:53→21:38)
[2020-11-25] MEDS: FUROSEMIDE 40 MG/4 ML VIAL IV SCH (08:53)
[2020-11-25] MEDS: FERROUS SULFATE 325 MG TABLET PO SCH (08:53)
[2020-11-25] MEDS: carvediloL 12.5 MG TABLET PO SCH ×2 (08:53→21:39)
[2020-11-25] MEDS: lisinopriL 10 MG TABLET PO SCH (08:53)
[2020-11-25] MEDS: PANTOPRAZOLE 40 MG TABLET PO SCH (08:53)
[2020-11-25] MEDS: LEVOTHYROXINE 200 MCG TABLET PO SCH (09:53)
[2020-11-25] MEDS: LEVOTHYROXINE 25 MCG TABLET PO SCH (16:10)
[2020-11-25] MEDS: FUROSEMIDE 40 MG TABLET PO SCH (16:10)
[2020-11-25] MEDS: GABAPENTIN 400 MG CAPSULE PO SCH (21:38)
[2020-11-25] MEDS: clonazePAM 0.5 MG TABLET PO SCH (21:39)
[2020-11-25] MEDS: traZODone 50 MG TABLET PO SCH (21:39)
[2020-11-25] MEDS: ATORVASTATIN 20 MG TABLET PO SCH (21:39)
[2020-11-25] MEDS: ESCITALOPRAM 10 MG TABLET PO SCH (21:39)
[2020-11-25] MEDS: TRAVOPROST 0.004% OPH SOLN 2.5 ML BOTTLE BOTH EYES SCH (21:40)
[2020-11-26 05:56] LABS: Basophils % 0.7 % (0.0-0.8); Eosinophils # 0.1 10*3/uL (0.0-0.87); Eosinophils % 1.2 % (0.00-10.9); Hematocrit 31.5 VOL% (35.7-47.0); Hemoglobin 10.1 GM/DL (12.0-16.0); Immature Granulocytes % 0.4 %; Immature Granulocytes Absolute 0.02 #; Lymphocytes # 1.8 10*3/uL (1.4-4.0); Mean Corpuscular HGB Conc 32.1 GM/DL (32-36); Mean Corpuscular Volume 93.5 FL (87-102); Mean Platelet Volume 8.9 FL (9.6-12.0); Monocytes % 9.5 % (1.7-12.7); Neutrophils % 56.2 % (38.7-73.9); Platelet Count 125 T/CUMM (130-400); Red Blood Count 3.37 MC/CUMM (3.8-5.5); Red Cell Distribution Width 14.9 % (9.3-17.3); White Blood Count 5.7 T/CUMM (4-12)
[2020-11-26 06:18] LABS: Calcium 8.2 MG/DL (8.5-10.1); Osmolality,Calculated 280.5 MOS/KG (273-304); Osmolality,Calculated 283.3 MOS/KG (273-304)
[2020-11-26] MEDS: MAGNESIUM OXIDE 400 MG TABLET PO SCH (09:18)
[2020-11-26] MEDS: APIXABAN 2.5 MG TABLET PO SCH ×2 (09:18→22:32)
[2020-11-26] MEDS: FUROSEMIDE 40 MG TABLET PO SCH ×2 (09:19→16:11)
[2020-11-26] MEDS: FERROUS SULFATE 325 MG TABLET PO SCH (09:19)
[2020-11-26] MEDS: AMIODARONE 200 MG TABLET PO SCH (09:19)
[2020-11-26] MEDS: LEVOTHYROXINE 200 MCG TABLET PO SCH (09:19)
[2020-11-26] MEDS: carvediloL 12.5 MG TABLET PO SCH ×2 (09:19→22:26)
[2020-11-26] MEDS: COLESTIPOL 1 GM TABLET PO SCH ×2 (09:19→22:25)
[2020-11-26] MEDS: lisinopriL 10 MG TABLET PO SCH (09:19)
[2020-11-26] MEDS: LORATADINE 10 MG TABLET PO SCH (09:19)
[2020-11-26] MEDS: PANTOPRAZOLE 40 MG TABLET PO SCH (09:20)
[2020-11-26 09:49] LABS: Bilirubin,Urine Negative (Negative); Blood, Urine Small mg/dL (Negative); Glucose,Urine (UA) Negative (Negative); Hyaline Casts,Urine 19 /LPF (0-3); Ketones,Urine 5 mg/dL (Negative); Mucus,Urine Occasional /LPF (Occasional); Nitrite,Urine Positive (Negative); Protein,Urine Negative; Urine Appearance CLEAR (Clear); Urine Color Yellow (Yellow); Urine Specific Gravity 1.009 (1.001-1.035); Urine Urobilinogen < 2.0 EU/DL (0.2-1.0); WBC,Urine <1 /HPF (0-6)
[2020-11-26] MEDS ORDERED: TAMSULOSIN 0.4 MG CAPSULE PO SCH (11:23)
[2020-11-26] MEDS: ONDANSETRON 4 MG/2 ML VIAL IV PRN (13:36)
[2020-11-26] MEDS: clonazePAM 0.5 MG TABLET PO SCH (22:24)
[2020-11-26] MEDS: traZODone 50 MG TABLET PO SCH (22:24)
[2020-11-26] MEDS: ATORVASTATIN 20 MG TABLET PO SCH (22:25)
[2020-11-26] MEDS: TAMSULOSIN 0.4 MG CAPSULE PO SCH (22:25)
[2020-11-26] MEDS: ESCITALOPRAM 10 MG TABLET PO SCH (22:26)
[2020-11-26] MEDS: TRAVOPROST 0.004% OPH SOLN 2.5 ML BOTTLE BOTH EYES SCH (22:27)
[2020-11-26] MEDS: GABAPENTIN 400 MG CAPSULE PO SCH (22:27)
[2020-11-26] MEDS ORDERED: ACETAMINOPHEN 325 MG/10.15 ML UDCUP PO PRN (23:45)
[2020-11-26] MEDS ORDERED: ACETAMINOPHEN 500 MG TABLET PO ONE (23:51)
[2020-11-27] MEDS: cefTRIAXone 1,000 MG in SYRINGE 1 EACH IV SCH ×2 (00:04→23:03)
[2020-11-27 05:43] LABS: Calcium 7.9 MG/DL (8.5-10.1); Osmolality,Calculated 283.5 MOS/KG (273-304); Potassium 3.8 MMOL/L (3.5-5.1)
[2020-11-27] MEDS ORDERED: SODIUM CHLORIDE 0.9% 250 ML IV ONE (06:02)
[2020-11-27] MEDS: FUROSEMIDE 40 MG TABLET PO SCH (08:34)
[2020-11-27] MEDS: COLESTIPOL 1 GM TABLET PO SCH ×2 (10:19→20:28)
[2020-11-27] MEDS: LEVOTHYROXINE 200 MCG TABLET PO SCH (10:19)
[2020-11-27] MEDS: FERROUS SULFATE 325 MG TABLET PO SCH (10:23)
[2020-11-27] MEDS: LORATADINE 10 MG TABLET PO SCH (10:23)
[2020-11-27] MEDS: PANTOPRAZOLE 40 MG TABLET PO SCH (10:23)
[2020-11-27] MEDS: MAGNESIUM OXIDE 400 MG TABLET PO SCH (10:23)
[2020-11-27] MEDS: APIXABAN 2.5 MG TABLET PO SCH ×2 (10:23→20:28)
[2020-11-27] MEDS: AMIODARONE 200 MG TABLET PO SCH (10:24)
[2020-11-27] MEDS: ATORVASTATIN 20 MG TABLET PO SCH (20:27)
[2020-11-27] MEDS: clonazePAM 0.5 MG TABLET PO SCH (20:27)
[2020-11-27] MEDS: GABAPENTIN 400 MG CAPSULE PO SCH (20:27)
[2020-11-27] MEDS: traZODone 50 MG TABLET PO SCH (20:28)
[2020-11-27] MEDS: ESCITALOPRAM 10 MG TABLET PO SCH (20:28)
[2020-11-27] MEDS: TRAVOPROST 0.004% OPH SOLN 2.5 ML BOTTLE BOTH EYES SCH (20:28)
[2020-11-27] MEDS: TAMSULOSIN 0.4 MG CAPSULE PO SCH (20:28)
[2020-11-28] MEDS: ACETAMINOPHEN 325 MG TABLET PO PRN (05:50)
[2020-11-28 06:14] LABS: Basophils % 0.6 % (0.0-0.8); Eosinophils # 0.1 10*3/uL (0.0-0.87); Hematocrit 29.7 VOL% (35.7-47.0); Hemoglobin 9.1 GM/DL (12.0-16.0); Immature Granulocytes % 0.3 %; Immature Granulocytes Absolute 0.02 #; Lymphocytes # 2.2 10*3/uL (1.4-4.0); Lymphocytes % 34.8 % (21.3-54.2); Mean Corpuscular HGB Conc 30.6 GM/DL (32-36); Mean Corpuscular Volume 96.4 FL (87-102); Mean Platelet Volume 9.8 FL (9.6-12.0); Monocytes % 10.4 % (1.7-12.7); Neutrophils % 52.9 % (38.7-73.9); Platelet Count 117 T/CUMM (130-400); Red Blood Count 3.08 MC/CUMM (3.8-5.5); Red Cell Distribution Width 14.6 % (9.3-17.3); White Blood Count 6.2 T/CUMM (4-12)
[2020-11-28 06:34] LABS: Albumin 2.4 G/DL (3.4-5.0); Bilirubin,Total 0.7 MG/DL (0.2-1.0); Calcium 7.5 MG/DL (8.5-10.1); Osmolality,Calculated 275.5 MOS/KG (273-304); Potassium 4.8 MMOL/L (3.5-5.1); Total Protein 5.7 G/DL (5.0-7.5)
[2020-11-28] MEDS ORDERED: PIPERACILLIN/TAZOBACTAM 3,375 MG in SODIUM CHLORIDE 0.9% 100 ML IV SCH (09:00)
[2020-11-28] MEDS: SODIUM CHLORIDE 0.9% 1,000 ML IV SCH (09:40)
[2020-11-28] MEDS: PANTOPRAZOLE 40 MG TABLET PO SCH (09:41)
[2020-11-28] MEDS: FERROUS SULFATE 325 MG TABLET PO SCH (09:41)
[2020-11-28] MEDS: MAGNESIUM OXIDE 400 MG TABLET PO SCH (09:41)
[2020-11-28] MEDS: LORATADINE 10 MG TABLET PO SCH (09:41)
[2020-11-28] MEDS: COLESTIPOL 1 GM TABLET PO SCH ×2 (09:41→20:42)
[2020-11-28] MEDS: AMIODARONE 200 MG TABLET PO SCH (09:41)
[2020-11-28] MEDS: LEVOTHYROXINE 200 MCG TABLET PO SCH (09:42)
[2020-11-28] MEDS: APIXABAN 2.5 MG TABLET PO SCH ×2 (09:42→20:42)
[2020-11-28] MEDS: ERTAPENEM 500 MG in SODIUM CHLORIDE 0.9% 100 ML IV SCH (16:26)
[2020-11-28] MEDS: clonazePAM 0.5 MG TABLET PO SCH (20:35)
[2020-11-28] MEDS: TAMSULOSIN 0.4 MG CAPSULE PO SCH (20:41)
[2020-11-28] MEDS: ESCITALOPRAM 10 MG TABLET PO SCH (20:41)
[2020-11-28] MEDS: GABAPENTIN 400 MG CAPSULE PO SCH (20:42)
[2020-11-28] MEDS: TRAVOPROST 0.004% OPH SOLN 2.5 ML BOTTLE BOTH EYES SCH (20:42)
[2020-11-28] MEDS: ATORVASTATIN 20 MG TABLET PO SCH (20:42)
[2020-11-28] MEDS: traZODone 50 MG TABLET PO SCH (20:42)
[2020-11-29] MEDS: SODIUM CHLORIDE 0.9% 1,000 ML IV SCH ×2 (07:15→09:52)
[2020-11-29 07:16] LABS: Calcium 7.3 MG/DL (8.5-10.1); Osmolality,Calculated 282.1 MOS/KG (273-304); Potassium 4.8 MMOL/L (3.5-5.1)
[2020-11-29] MEDS: COLESTIPOL 1 GM TABLET PO SCH ×2 (09:49→21:48)
[2020-11-29] MEDS: FERROUS SULFATE 325 MG TABLET PO SCH (09:49)
[2020-11-29] MEDS: AMIODARONE 200 MG TABLET PO SCH (09:50)
[2020-11-29] MEDS: MAGNESIUM OXIDE 400 MG TABLET PO SCH (09:50)
[2020-11-29] MEDS: LEVOTHYROXINE 200 MCG TABLET PO SCH (09:50)
[2020-11-29] MEDS: APIXABAN 2.5 MG TABLET PO SCH ×2 (09:50→21:48)
[2020-11-29] MEDS: LORATADINE 10 MG TABLET PO SCH (09:50)
[2020-11-29] MEDS: PANTOPRAZOLE 40 MG TABLET PO SCH (09:50)
[2020-11-29] MEDS: ERTAPENEM 500 MG in SODIUM CHLORIDE 0.9% 100 ML IV SCH (15:38)
[2020-11-29] MEDS ORDERED: BUPRENORPHINE TRANSDERM SCH (16:33)
[2020-11-29] MEDS: traZODone 50 MG TABLET PO SCH (21:48)
[2020-11-29] MEDS: TAMSULOSIN 0.4 MG CAPSULE PO SCH (21:48)
[2020-11-29] MEDS: GABAPENTIN 400 MG CAPSULE PO SCH (21:48)
[2020-11-29] MEDS: ESCITALOPRAM 10 MG TABLET PO SCH (21:48)
[2020-11-29] MEDS: ATORVASTATIN 20 MG TABLET PO SCH (21:48)
[2020-11-29] MEDS: TRAVOPROST 0.004% OPH SOLN 2.5 ML BOTTLE BOTH EYES SCH (21:48)
[2020-11-29] MEDS: clonazePAM 0.5 MG TABLET PO SCH (22:09)
[2020-11-30 05:57] LABS: Osmolality,Calculated 274.8 MOS/KG (273-304); Potassium 4.9 MMOL/L (3.5-5.1)
[2020-11-30] MEDS: SODIUM CHLORIDE 0.9% 1,000 ML IV SCH (06:41)
[2020-11-30] MEDS: AMIODARONE 200 MG TABLET PO SCH (08:57)
[2020-11-30] MEDS: COLESTIPOL 1 GM TABLET PO SCH ×2 (08:57→21:44)
[2020-11-30] MEDS: APIXABAN 2.5 MG TABLET PO SCH ×2 (08:58→21:45)
[2020-11-30] MEDS: PANTOPRAZOLE 40 MG TABLET PO SCH (08:58)
[2020-11-30] MEDS: LORATADINE 10 MG TABLET PO SCH (08:58)
[2020-11-30] MEDS: MAGNESIUM OXIDE 400 MG TABLET PO SCH (08:58)
[2020-11-30] MEDS: FERROUS SULFATE 325 MG TABLET PO SCH (08:58)
[2020-11-30] MEDS: LEVOTHYROXINE 200 MCG TABLET PO SCH (08:58)
[2020-11-30] MEDS: ERTAPENEM 500 MG in SODIUM CHLORIDE 0.9% 100 ML IV SCH (15:29)
[2020-11-30] MEDS: clonazePAM 0.5 MG TABLET PO SCH (21:44)
[2020-11-30] MEDS: TRAVOPROST 0.004% OPH SOLN 2.5 ML BOTTLE BOTH EYES SCH (21:45)
[2020-11-30] MEDS: traZODone 50 MG TABLET PO SCH (21:45)
[2020-11-30] MEDS: ATORVASTATIN 20 MG TABLET PO SCH (21:45)
[2020-11-30] MEDS: ESCITALOPRAM 10 MG TABLET PO SCH (21:45)
[2020-11-30] MEDS: TAMSULOSIN 0.4 MG CAPSULE PO SCH (21:45)
[2020-11-30] MEDS: GABAPENTIN 400 MG CAPSULE PO SCH (21:45)
[2020-12-01] MEDS: SODIUM CHLORIDE 0.9% 1,000 ML IV SCH ×2 (04:33→16:45)
[2020-12-01 06:15] LABS: Basophils % 0.7 % (0.0-0.8); Eosinophils # 0.1 10*3/uL (0.0-0.87); Eosinophils % 2.6 % (0.00-10.9); Hematocrit 28.7 VOL% (35.7-47.0); Hemoglobin 8.7 GM/DL (12.0-16.0); Immature Granulocytes % 0.5 %; Immature Granulocytes Absolute 0.02 #; Lymphocytes # 1.2 10*3/uL (1.4-4.0); Lymphocytes % 29.2 % (21.3-54.2); Mean Corpuscular HGB Conc 30.3 GM/DL (32-36); Mean Corpuscular Volume 97.3 FL (87-102); Mean Platelet Volume 10.1 FL (9.6-12.0); Monocytes % 10.5 % (1.7-12.7); Neutrophils % 56.5 % (38.7-73.9); Platelet Count 123 T/CUMM (130-400); Red Blood Count 2.95 MC/CUMM (3.8-5.5); Red Cell Distribution Width 14.3 % (9.3-17.3); White Blood Count 4.2 T/CUMM (4-12)
[2020-12-01 06:35] LABS: Calcium 8.2 MG/DL (8.5-10.1); Osmolality,Calculated 275.5 MOS/KG (273-304)
[2020-12-01] MEDS: AMIODARONE 200 MG TABLET PO SCH (08:39)
[2020-12-01] MEDS: APIXABAN 2.5 MG TABLET PO SCH ×2 (08:40→22:17)
[2020-12-01] MEDS: PANTOPRAZOLE 40 MG TABLET PO SCH (08:40)
[2020-12-01] MEDS: COLESTIPOL 1 GM TABLET PO SCH ×2 (08:40→22:22)
[2020-12-01] MEDS: LORATADINE 10 MG TABLET PO SCH (08:40)
[2020-12-01] MEDS: FERROUS SULFATE 325 MG TABLET PO SCH ×2 (08:40→22:19)
[2020-12-01] MEDS: LEVOTHYROXINE 200 MCG TABLET PO SCH (08:40)
[2020-12-01] MEDS: MAGNESIUM OXIDE 400 MG TABLET PO SCH (08:40)
[2020-12-01 09:11] LABS: Ferritin 82.1 ng/ml (8-252)
[2020-12-01 09:26] LABS: Folate 5.5 NG/ML (5.38-24.0)
[2020-12-01] MEDS: ERTAPENEM 500 MG in SODIUM CHLORIDE 0.9% 100 ML IV SCH (14:46)
[2020-12-01] MEDS: ESCITALOPRAM 10 MG TABLET PO SCH (22:18)
[2020-12-01] MEDS: ATORVASTATIN 20 MG TABLET PO SCH (22:18)
[2020-12-01] MEDS: traZODone 50 MG TABLET PO SCH (22:20)
[2020-12-01] MEDS: GABAPENTIN 400 MG CAPSULE PO SCH (22:20)
[2020-12-01] MEDS: TAMSULOSIN 0.4 MG CAPSULE PO SCH (22:21)
[2020-12-01] MEDS: TRAVOPROST 0.004% OPH SOLN 2.5 ML BOTTLE BOTH EYES SCH (22:23)
[2020-12-01] MEDS: ONDANSETRON 4 MG/2 ML VIAL IV PRN (23:10)
[2020-12-01] MEDS ORDERED: DILTIAZEM 25 MG/5 ML VIAL IV ONE (23:12)
[2020-12-02 04:07] LABS: Basophils % 0.6 % (0.0-0.8); Eosinophils # 0.1 10*3/uL (0.0-0.87); Eosinophils % 0.9 % (0.00-10.9); Hematocrit 29.7 VOL% (35.7-47.0); Hemoglobin 8.9 GM/DL (12.0-16.0); Immature Granulocytes % 1.5 %; Immature Granulocytes Absolute 0.08 #; Lymphocytes # 0.9 10*3/uL (1.4-4.0); Lymphocytes % 17.2 % (21.3-54.2); Mean Corpuscular Volume 98.7 FL (87-102); Mean Platelet Volume 9.9 FL (9.6-12.0); Monocytes % 9.7 % (1.7-12.7); Neutrophils % 70.1 % (38.7-73.9); Platelet Count 132 T/CUMM (130-400); Red Blood Count 3.01 MC/CUMM (3.8-5.5); Red Cell Distribution Width 14.4 % (9.3-17.3); White Blood Count 5.4 T/CUMM (4-12)
[2020-12-02 04:43] LABS: Calcium 8.4 MG/DL (8.5-10.1); Osmolality,Calculated 273.5 MOS/KG (273-304); Potassium 5.4 MMOL/L (3.5-5.1)
[2020-12-02 08:14] LABS: INR 1.3; PT Patient Result 13.4 SECS (9.8-11.9)
[2020-12-02] MEDS ORDERED: SODIUM POLYSTYRENE SULFATE 15 GM/60 ML BOTTLE PO ONE (08:25)
[2020-12-02] MEDS: COLESTIPOL 1 GM TABLET PO SCH ×2 (09:37→23:38)
[2020-12-02] MEDS: LEVOTHYROXINE 200 MCG TABLET PO SCH (09:37)
[2020-12-02] MEDS: MAGNESIUM OXIDE 400 MG TABLET PO SCH (09:37)
[2020-12-02] MEDS: AMIODARONE 200 MG TABLET PO SCH (09:37)
[2020-12-02] MEDS: PANTOPRAZOLE 40 MG TABLET PO SCH (09:38)
[2020-12-02] MEDS: FERROUS SULFATE 325 MG TABLET PO SCH ×2 (09:38→23:35)
[2020-12-02] MEDS: LORATADINE 10 MG TABLET PO SCH (09:38)
[2020-12-02] MEDS: APIXABAN 2.5 MG TABLET PO SCH (11:46)
[2020-12-02] MEDS ORDERED: DIGOXIN 0.5 MG/2 ML AMP IV ONE (12:57)
[2020-12-02] MEDS: ASCORBIC ACID 500 MG TABLET PO SCH ×2 (13:49→23:37)
[2020-12-02] MEDS ORDERED: SODIUM CHLORIDE 0.45% 1,000 ML IV SCH (14:30)
[2020-12-02] MEDS: ERTAPENEM 500 MG in SODIUM CHLORIDE 0.9% 100 ML IV SCH (15:02)
[2020-12-02] MEDS: LEVOTHYROXINE 25 MCG TABLET PO SCH (17:08)
[2020-12-02] MEDS: ATORVASTATIN 20 MG TABLET PO SCH (23:32)
[2020-12-02] MEDS: GABAPENTIN 400 MG CAPSULE PO SCH (23:33)
[2020-12-02] MEDS: ESCITALOPRAM 10 MG TABLET PO SCH (23:33)
[2020-12-02] MEDS: traZODone 50 MG TABLET PO SCH (23:34)
[2020-12-02] MEDS: TAMSULOSIN 0.4 MG CAPSULE PO SCH (23:34)
[2020-12-02] MEDS: TRAVOPROST 0.004% OPH SOLN 2.5 ML BOTTLE BOTH EYES SCH (23:40)
[2020-12-03 05:48] LABS: Basophils % 0.5 % (0.0-0.8); Eosinophils # 0.1 10*3/uL (0.0-0.87); Hematocrit 28.1 VOL% (35.7-47.0); Hemoglobin 8.6 GM/DL (12.0-16.0); Immature Granulocytes % 0.3 %; Immature Granulocytes Absolute 0.01 #; Lymphocytes # 1.2 10*3/uL (1.4-4.0); Lymphocytes % 29.3 % (21.3-54.2); Mean Corpuscular HGB Conc 30.6 GM/DL (32-36); Mean Corpuscular Volume 96.9 FL (87-102); Mean Platelet Volume 9.6 FL (9.6-12.0); Monocytes % 10.1 % (1.7-12.7); Neutrophils % 57.8 % (38.7-73.9); Platelet Count 138 T/CUMM (130-400); Red Cell Distribution Width 14.4 % (9.3-17.3)
[2020-12-03 06:04] LABS: Calcium 8.1 MG/DL (8.5-10.1); Osmolality,Calculated 280.8 MOS/KG (273-304); Potassium 4.7 MMOL/L (3.5-5.1)
[2020-12-03] MEDS: AMIODARONE 200 MG TABLET PO SCH (08:59)
[2020-12-03] MEDS: PANTOPRAZOLE 40 MG TABLET PO SCH (09:00)
[2020-12-03] MEDS: LORATADINE 10 MG TABLET PO SCH (09:00)
[2020-12-03] MEDS: MAGNESIUM OXIDE 400 MG TABLET PO SCH (09:00)
[2020-12-03] MEDS: FERROUS SULFATE 325 MG TABLET PO SCH ×2 (09:00→21:39)
[2020-12-03] MEDS ORDERED: LEVOTHYROXINE 25 MCG TABLET PO SCH (09:00)
[2020-12-03] MEDS: LEVOTHYROXINE 200 MCG TABLET PO SCH (09:00)
[2020-12-03] MEDS: ASCORBIC ACID 500 MG TABLET PO SCH ×2 (09:00→21:40)
[2020-12-03] MEDS: COLESTIPOL 1 GM TABLET PO SCH ×2 (09:00→21:37)
[2020-12-03] MEDS: METOPROLOL TARTRATE 25 MG TABLET PO SCH (14:25)
[2020-12-03] MEDS: ERTAPENEM 500 MG in SODIUM CHLORIDE 0.9% 100 ML IV SCH (14:26)
[2020-12-03] MEDS: traZODone 50 MG TABLET PO SCH (21:39)
[2020-12-03] MEDS: TAMSULOSIN 0.4 MG CAPSULE PO SCH (21:39)
[2020-12-03] MEDS: ATORVASTATIN 20 MG TABLET PO SCH (21:40)
[2020-12-03] MEDS: GABAPENTIN 400 MG CAPSULE PO SCH (21:40)
[2020-12-03] MEDS: ESCITALOPRAM 10 MG TABLET PO SCH (21:40)
[2020-12-03] MEDS: TRAVOPROST 0.004% OPH SOLN 2.5 ML BOTTLE BOTH EYES SCH (21:41)
[2020-12-03] MEDS ORDERED: FUROSEMIDE 40 MG/4 ML VIAL IV ONE (22:48)
[2020-12-04 06:29] LABS: Basophils % 0.6 % (0.0-0.8); Eosinophils # 0.1 10*3/uL (0.0-0.87); Eosinophils % 1.4 % (0.00-10.9); Hematocrit 29.5 VOL% (35.7-47.0); Hemoglobin 9.3 GM/DL (12.0-16.0); Immature Granulocytes % 0.4 %; Immature Granulocytes Absolute 0.02 #; Lymphocytes # 1.1 10*3/uL (1.4-4.0); Lymphocytes % 21.1 % (21.3-54.2); Mean Corpuscular HGB Conc 31.5 GM/DL (32-36); Mean Corpuscular Volume 96.1 FL (87-102); Mean Platelet Volume 9.6 FL (9.6-12.0); Neutrophils % 64.5 % (38.7-73.9); Platelet Count 157 T/CUMM (130-400); Red Blood Count 3.07 MC/CUMM (3.8-5.5); Red Cell Distribution Width 14.5 % (9.3-17.3)
[2020-12-04 06:48] LABS: Calcium 8.7 MG/DL (8.5-10.1)
[2020-12-04 06:49] LABS: Osmolality,Calculated 278.8 MOS/KG (273-304); Potassium 4.4 MMOL/L (3.5-5.1)
[2020-12-04] MEDS: COLESTIPOL 1 GM TABLET PO SCH ×3 (10:07→20:39)
[2020-12-04] MEDS: FERROUS SULFATE 325 MG TABLET PO SCH ×2 (10:07→20:39)
[2020-12-04] MEDS: AMIODARONE 200 MG TABLET PO SCH ×2 (10:07→11:31)
[2020-12-04] MEDS: LORATADINE 10 MG TABLET PO SCH (10:07)
[2020-12-04] MEDS: METOPROLOL TARTRATE 25 MG TABLET PO SCH ×2 (10:08→11:32)
[2020-12-04] MEDS: PANTOPRAZOLE 40 MG TABLET PO SCH (10:08)
[2020-12-04] MEDS: MAGNESIUM OXIDE 400 MG TABLET PO SCH (10:08)
[2020-12-04] MEDS: LEVOTHYROXINE 200 MCG TABLET PO SCH (10:08)
[2020-12-04] MEDS: ASCORBIC ACID 500 MG TABLET PO SCH ×2 (10:08→20:38)
[2020-12-04] MEDS: ERTAPENEM 500 MG in SODIUM CHLORIDE 0.9% 100 ML IV SCH (15:56)
[2020-12-04] MEDS: traZODone 50 MG TABLET PO SCH (20:39)
[2020-12-04] MEDS: ATORVASTATIN 20 MG TABLET PO SCH (20:39)
[2020-12-04] MEDS: APIXABAN 2.5 MG TABLET PO SCH (20:39)
[2020-12-04] MEDS: GABAPENTIN 400 MG CAPSULE PO SCH (20:39)
[2020-12-04] MEDS: ESCITALOPRAM 10 MG TABLET PO SCH (20:39)
[2020-12-04] MEDS: TAMSULOSIN 0.4 MG CAPSULE PO SCH (20:39)
[2020-12-04] MEDS: TRAVOPROST 0.004% OPH SOLN 2.5 ML BOTTLE BOTH EYES SCH (20:40)
[2020-12-04] MEDS: ONDANSETRON 4 MG/2 ML VIAL IV PRN (20:49)
[2020-12-05] MEDS: ACETAMINOPHEN 325 MG TABLET PO PRN (01:55)
[2020-12-05 05:40] LABS: Basophils % 0.6 % (0.0-0.8); Eosinophils % 0.4 % (0.00-10.9); Hematocrit 27.6 VOL% (35.7-47.0); Hemoglobin 8.3 GM/DL (12.0-16.0); Immature Granulocytes % 0.8 %; Immature Granulocytes Absolute 0.04 #; Lymphocytes # 1.3 10*3/uL (1.4-4.0); Lymphocytes % 24.5 % (21.3-54.2); Mean Corpuscular HGB Conc 30.1 GM/DL (32-36); Mean Corpuscular Volume 96.5 FL (87-102); Mean Platelet Volume 9.8 FL (9.6-12.0); Monocytes % 12.5 % (1.7-12.7); Neutrophils % 61.2 % (38.7-73.9); Platelet Count 144 T/CUMM (130-400); Red Blood Count 2.86 MC/CUMM (3.8-5.5); Red Cell Distribution Width 14.3 % (9.3-17.3); White Blood Count 5.2 T/CUMM (4-12)
[2020-12-05 06:08] LABS: Calcium 8.2 MG/DL (8.5-10.1); Osmolality,Calculated 280.7 MOS/KG (273-304); Potassium 4.2 MMOL/L (3.5-5.1)
[2020-12-05] MEDS: METOPROLOL TARTRATE 25 MG TABLET PO SCH (08:28)
[2020-12-05] MEDS: APIXABAN 2.5 MG TABLET PO SCH ×2 (08:28→20:44)
[2020-12-05] MEDS: COLESTIPOL 1 GM TABLET PO SCH ×2 (08:28→20:43)
[2020-12-05] MEDS: MAGNESIUM OXIDE 400 MG TABLET PO SCH (08:28)
[2020-12-05] MEDS: LORATADINE 10 MG TABLET PO SCH (08:28)
[2020-12-05] MEDS: PANTOPRAZOLE 40 MG TABLET PO SCH (08:28)
[2020-12-05] MEDS: ASCORBIC ACID 500 MG TABLET PO SCH ×2 (08:28→20:44)
[2020-12-05] MEDS: FERROUS SULFATE 325 MG TABLET PO SCH ×2 (08:28→20:43)
[2020-12-05] MEDS: AMIODARONE 200 MG TABLET PO SCH (08:28)
[2020-12-05] MEDS: LEVOTHYROXINE 200 MCG TABLET PO SCH ×2 (10:49→12:54)
[2020-12-05] MEDS: ERTAPENEM 500 MG in SODIUM CHLORIDE 0.9% 100 ML IV SCH (15:42)
[2020-12-05] MEDS: TAMSULOSIN 0.4 MG CAPSULE PO SCH (20:43)
[2020-12-05] MEDS: traZODone 50 MG TABLET PO SCH (20:44)
[2020-12-05] MEDS: TRAVOPROST 0.004% OPH SOLN 2.5 ML BOTTLE BOTH EYES SCH (20:44)
[2020-12-05] MEDS: ATORVASTATIN 20 MG TABLET PO SCH (20:44)
[2020-12-05] MEDS: ESCITALOPRAM 10 MG TABLET PO SCH (20:44)
[2020-12-05] MEDS: GABAPENTIN 400 MG CAPSULE PO SCH (20:44)
[2020-12-06 06:05] LABS: Basophils % 0.5 % (0.0-0.8); Eosinophils # 0.1 10*3/uL (0.0-0.87); Eosinophils % 1.7 % (0.00-10.9); Hematocrit 28.1 VOL% (35.7-47.0); Hemoglobin 8.5 GM/DL (12.0-16.0); Immature Granulocytes % 0.5 %; Immature Granulocytes Absolute 0.02 #; Lymphocytes # 1.2 10*3/uL (1.4-4.0); Lymphocytes % 29.7 % (21.3-54.2); Mean Corpuscular HGB Conc 30.2 GM/DL (32-36); Mean Corpuscular Volume 96.6 FL (87-102); Mean Platelet Volume 9.7 FL (9.6-12.0); Monocytes % 11.8 % (1.7-12.7); Neutrophils % 55.8 % (38.7-73.9); Platelet Count 149 T/CUMM (130-400); Red Blood Count 2.91 MC/CUMM (3.8-5.5); Red Cell Distribution Width 14.4 % (9.3-17.3); White Blood Count 4.2 T/CUMM (4-12)
[2020-12-06] MEDS: LEVOTHYROXINE 200 MCG TABLET PO SCH (06:06)
[2020-12-06 06:32] LABS: Calcium 8.2 MG/DL (8.5-10.1); Potassium 4.6 MMOL/L (3.5-5.1)
[2020-12-06] MEDS ORDERED: ALBUTEROL/IPRATROPIUM 3 ML NEB RESP TX PRN (08:40)
[2020-12-06] MEDS: LORATADINE 10 MG TABLET PO SCH (09:54)
[2020-12-06] MEDS: AMIODARONE 200 MG TABLET PO SCH (09:54)
[2020-12-06] MEDS: APIXABAN 2.5 MG TABLET PO SCH ×2 (09:54→20:36)
[2020-12-06] MEDS: COLESTIPOL 1 GM TABLET PO SCH ×2 (09:54→20:36)
[2020-12-06] MEDS: MAGNESIUM OXIDE 400 MG TABLET PO SCH (09:55)
[2020-12-06] MEDS: METOPROLOL TARTRATE 25 MG TABLET PO SCH (09:55)
[2020-12-06] MEDS: PANTOPRAZOLE 40 MG TABLET PO SCH (09:55)
[2020-12-06] MEDS: FUROSEMIDE 20 MG TABLET PO SCH (09:55)
[2020-12-06] MEDS: ASCORBIC ACID 500 MG TABLET PO SCH ×2 (09:55→20:37)
[2020-12-06] MEDS: FERROUS SULFATE 325 MG TABLET PO SCH ×2 (09:55→20:38)
[2020-12-06] MEDS: ALBUTEROL/IPRATROPIUM 3 ML NEB RESP TX SCH ×4 (11:42→23:07)
[2020-12-06] MEDS: ERTAPENEM 500 MG in SODIUM CHLORIDE 0.9% 100 ML IV SCH (15:45)
[2020-12-06] MEDS: TAMSULOSIN 0.4 MG CAPSULE PO SCH (20:36)
[2020-12-06] MEDS: GABAPENTIN 400 MG CAPSULE PO SCH (20:36)
[2020-12-06] MEDS: traZODone 50 MG TABLET PO SCH (20:37)
[2020-12-06] MEDS: ATORVASTATIN 20 MG TABLET PO SCH (20:37)
[2020-12-06] MEDS: ESCITALOPRAM 10 MG TABLET PO SCH (20:38)
[2020-12-06] MEDS: TRAVOPROST 0.004% OPH SOLN 2.5 ML BOTTLE BOTH EYES SCH (20:38)
[2020-12-07] MEDS: ALBUTEROL/IPRATROPIUM 3 ML NEB RESP TX SCH ×5 (03:55→19:34)
[2020-12-07] MEDS: LEVOTHYROXINE 200 MCG TABLET PO SCH (06:09)
[2020-12-07] MEDS: FERROUS SULFATE 325 MG TABLET PO SCH ×2 (08:59→21:16)
[2020-12-07] MEDS: ASCORBIC ACID 500 MG TABLET PO SCH ×2 (08:59→21:15)
[2020-12-07] MEDS: COLESTIPOL 1 GM TABLET PO SCH ×2 (08:59→21:14)
[2020-12-07] MEDS: PANTOPRAZOLE 40 MG TABLET PO SCH (09:00)
[2020-12-07] MEDS: MAGNESIUM OXIDE 400 MG TABLET PO SCH (09:00)
[2020-12-07] MEDS: FUROSEMIDE 20 MG TABLET PO SCH (09:00)
[2020-12-07] MEDS: LACTULOSE 20 GM/30 ML UDCUP PO PRN (09:00)
[2020-12-07] MEDS: APIXABAN 2.5 MG TABLET PO SCH ×2 (09:00→21:16)
[2020-12-07] MEDS: AMIODARONE 200 MG TABLET PO SCH (09:00)
[2020-12-07] MEDS: METOPROLOL TARTRATE 25 MG TABLET PO SCH (09:00)
[2020-12-07] MEDS: LORATADINE 10 MG TABLET PO SCH (09:00)
[2020-12-07] MEDS: ERTAPENEM 500 MG in SODIUM CHLORIDE 0.9% 100 ML IV SCH (16:15)
[2020-12-07] MEDS: TAMSULOSIN 0.4 MG CAPSULE PO SCH (21:14)
[2020-12-07] MEDS: TRAVOPROST 0.004% OPH SOLN 2.5 ML BOTTLE BOTH EYES SCH (21:14)
[2020-12-07] MEDS: ATORVASTATIN 20 MG TABLET PO SCH (21:15)
[2020-12-07] MEDS: GABAPENTIN 400 MG CAPSULE PO SCH (21:15)
[2020-12-07] MEDS: ESCITALOPRAM 10 MG TABLET PO SCH (21:15)
[2020-12-07] MEDS: traZODone 50 MG TABLET PO SCH (21:16)
[2020-12-08] MEDS: ALBUTEROL/IPRATROPIUM 3 ML NEB RESP TX SCH ×7 (00:40→23:00)
[2020-12-08] MEDS: LEVOTHYROXINE 200 MCG TABLET PO SCH (06:10)
[2020-12-08] MEDS: AMIODARONE 200 MG TABLET PO SCH (09:05)
[2020-12-08] MEDS: MAGNESIUM OXIDE 400 MG TABLET PO SCH (09:05)
[2020-12-08] MEDS: COLESTIPOL 1 GM TABLET PO SCH ×2 (09:05→21:51)
[2020-12-08] MEDS: ASCORBIC ACID 500 MG TABLET PO SCH ×2 (09:06→21:47)
[2020-12-08] MEDS: LORATADINE 10 MG TABLET PO SCH (09:06)
[2020-12-08] MEDS: FERROUS SULFATE 325 MG TABLET PO SCH ×2 (09:06→21:48)
[2020-12-08] MEDS: PANTOPRAZOLE 40 MG TABLET PO SCH (09:06)
[2020-12-08] MEDS: APIXABAN 2.5 MG TABLET PO SCH (09:06)
[2020-12-08] MEDS: FUROSEMIDE 20 MG TABLET PO SCH (09:06)
[2020-12-08] MEDS: METOPROLOL TARTRATE 25 MG TABLET PO SCH (09:07)
[2020-12-08] MEDS: ERTAPENEM 500 MG in SODIUM CHLORIDE 0.9% 100 ML IV SCH (17:00)
[2020-12-08] MEDS ORDERED: FUROSEMIDE 40 MG/4 ML VIAL IV ONE (17:51)
[2020-12-08 17:57] LABS: ABG Base Excess 3.9 MMOL/L (-2.5-2.5); ABG HCO3 27.8 MMOL/L (20-26); ABG Oxygen Saturation 93.1 % (95-100); ABG PCO2 48.8 MM HG (35-48); ABG PH 7.391 (7.35-7.45); ABG PO2 70.3 MM HG (80-95); ABG TCO2 26.9 MMOL/L (23-27)
[2020-12-08 18:09] LABS: Basophils % 0.4 % (0.0-0.8); Eosinophils # 0.1 10*3/uL (0.0-0.87); Eosinophils % 0.7 % (0.00-10.9); Hemoglobin 9.5 GM/DL (12.0-16.0); Immature Granulocytes % 0.7 %; Immature Granulocytes Absolute 0.05 #; Lymphocytes # 1.5 10*3/uL (1.4-4.0); Lymphocytes % 21.5 % (21.3-54.2); Mean Corpuscular HGB Conc 29.7 GM/DL (32-36); Mean Corpuscular Volume 97.6 FL (87-102); Mean Platelet Volume 9.6 FL (9.6-12.0); Monocytes % 9.9 % (1.7-12.7); Neutrophils % 66.8 % (38.7-73.9); Platelet Count 200 T/CUMM (130-400); Red Blood Count 3.28 MC/CUMM (3.8-5.5); Red Cell Distribution Width 14.3 % (9.3-17.3); White Blood Count 6.9 T/CUMM (4-12)
[2020-12-08 18:19] LABS: INR 1.4; PT Patient Result 14.5 SECS (9.8-11.9)
[2020-12-08] MEDS ORDERED: ETOMIDATE 20 MG/10 ML VIAL IV ONE ×2 (18:23→18:31)
[2020-12-08] MEDS ORDERED: SUCCINYLCHOLINE 200 MG/10 ML VIAL ONE (18:24)
[2020-12-08 18:26] LABS: Blood Urea Nitrogen 21 MG/DL (7-18); Calcium 8.7 MG/DL (8.5-10.1); Carbon Dioxide 25 MMOL/L (21-32); Estimated Glom Filtration Rate 48 ML/MIN; Glucose 170 MG/DL (74-106); Osmolality,Calculated 276.1 MOS/KG (273-304); Potassium 5.1 MMOL/L (3.5-5.1); Sodium 135 MMOL/L (136-145)
[2020-12-08] MEDS ORDERED: SUCCINYLCHOLINE 200 MG/10 ML VIAL IV ONE (18:31)
[2020-12-08] MEDS ORDERED: DIGOXIN 0.5 MG/2 ML AMP IV ONE (18:40)
[2020-12-08 19:16] LABS: Bilirubin,Urine Negative (Negative); Blood, Urine Negative (Negative); Glucose,Urine (UA) Negative (Negative); Hyaline Casts,Urine 3 /LPF (0-3); Ketones,Urine Negative (Negative); Mucus,Urine Occasional /LPF (Occasional); Nitrite,Urine Negative (Negative); Protein,Urine 100 MG/DL; RBC,Urine <1 /HPF (0-4); Squamous Epithelial Cell,Urine Occasional /HPF (0-10); Urine Appearance CLEAR (Clear); Urine Color Yellow (Yellow); Urine Specific Gravity 1.013 (1.001-1.035); Urine Urobilinogen < 2.0 EU/DL (0.2-1.0); WBC,Urine 12 /HPF (0-6)
[2020-12-08] MEDS ORDERED: MIDAZOLAM 100 MG in SODIUM CHLORIDE 0.9% 80 ML IV PRN (19:50)
[2020-12-08 20:09] LABS: ABG Base Excess 2.4 MMOL/L (-2.5-2.5); ABG HCO3 28.3 MMOL/L (20-26); ABG PCO2 50.2 MM HG (35-48); ABG PH 7.369 (7.35-7.45); ABG PO2 203.7 MM HG (80-95); ABG TCO2 29.8 MMOL/L (23-27); Allen Test Positive; Pt O2 Delivery Device Ventilator
[2020-12-08] MEDS: traZODone 50 MG TABLET PO SCH (21:47)
[2020-12-08] MEDS: GABAPENTIN 400 MG CAPSULE PO SCH (21:47)
[2020-12-08] MEDS: ATORVASTATIN 20 MG TABLET PO SCH (21:48)
[2020-12-08] MEDS: TAMSULOSIN 0.4 MG CAPSULE PO SCH (21:48)
[2020-12-08] MEDS: ESCITALOPRAM 10 MG TABLET PO SCH (21:48)
[2020-12-08] MEDS: TRAVOPROST 0.004% OPH SOLN 2.5 ML BOTTLE BOTH EYES SCH (21:49)
[2020-12-08] MEDS: POLYVINYL ALCOHOL 1.4% OPH SOLN 15 ML BOTTLE BOTH EYES PRN (21:49)
[2020-12-08] MEDS: CLINDAMYCIN INJ 600 MG in PREMIX 1 EACH IV SCH (23:26)
[2020-12-08] MEDS: VANCOMYCIN INJ 1,000 MG in SODIUM CHLORIDE 0.9% 250 ML IV SCH (23:27)
[2020-12-08] MEDS: CEFEPIME 1,000 MG in SODIUM CHLORIDE 0.9% 100 ML IV SCH (23:27)
[2020-12-09] MEDS: CEFEPIME 1,000 MG in SODIUM CHLORIDE 0.9% 100 ML IV SCH ×4 (03:25→20:13)
[2020-12-09 04:11] LABS: ABG Base Excess 8.2 MMOL/L (-2.5-2.5); ABG HCO3 31.8 MMOL/L (20-26); ABG Oxygen Saturation 85.6 % (95-100); ABG PCO2 29.7 MM HG (35-48); ABG PO2 41.8 MM HG (80-95); ABG TCO2 27.3 MMOL/L (23-27)
[2020-12-09 04:13] LABS: ABG PH 7.609 (7.35-7.45)
[2020-12-09] MEDS: ALBUTEROL/IPRATROPIUM 3 ML NEB RESP TX SCH ×6 (04:25→23:38)
[2020-12-09 05:03] LABS: Basophils % 0.3 % (0.0-0.8); Eosinophils % 0.7 % (0.00-10.9); Hematocrit 31.8 VOL% (35.7-47.0); Hemoglobin 9.6 GM/DL (12.0-16.0); Immature Granulocytes % 0.7 %; Immature Granulocytes Absolute 0.04 #; Lymphocytes # 1.3 10*3/uL (1.4-4.0); Lymphocytes % 21.8 % (21.3-54.2); Mean Corpuscular HGB Conc 30.2 GM/DL (32-36); Mean Corpuscular Volume 94.6 FL (87-102); Mean Platelet Volume 9.6 FL (9.6-12.0); Monocytes % 8.1 % (1.7-12.7); Neutrophils % 68.4 % (38.7-73.9); Platelet Count 174 T/CUMM (130-400); Red Blood Count 3.36 MC/CUMM (3.8-5.5); Red Cell Distribution Width 14.1 % (9.3-17.3); White Blood Count 5.8 T/CUMM (4-12)
[2020-12-09] MEDS: CLINDAMYCIN INJ 600 MG in PREMIX 1 EACH IV SCH ×3 (05:56→21:29)
[2020-12-09] MEDS: LEVOTHYROXINE 200 MCG TABLET PO SCH (06:00)
[2020-12-09] MEDS ORDERED: LEVOTHYROXINE 25 MCG TABLET PO SCH (06:30)
[2020-12-09 06:32] LABS: Allen Test Positive; Pt O2 Delivery Device Ventilator
[2020-12-09 06:36] LABS: ABG Base Excess 7.6 MMOL/L (-2.5-2.5); ABG HCO3 31.3 MMOL/L (20-26); ABG Oxygen Saturation 92.2 % (95-100); ABG PCO2 28.1 MM HG (35-48); ABG PO2 52.5 MM HG (80-95); ABG TCO2 26.5 MMOL/L (23-27)
[2020-12-09] MEDS ORDERED: FUROSEMIDE 40 MG/4 ML VIAL IV ONE (07:31)
[2020-12-09] MEDS: COLESTIPOL 1 GM TABLET PO SCH ×2 (08:01→20:14)
[2020-12-09] MEDS: FERROUS SULFATE 325 MG TABLET PO SCH ×2 (08:02→20:14)
[2020-12-09] MEDS: METOPROLOL TARTRATE 25 MG TABLET PO SCH (08:02)
[2020-12-09] MEDS: ASCORBIC ACID 500 MG TABLET PO SCH ×2 (08:02→20:14)
[2020-12-09] MEDS: MAGNESIUM OXIDE 400 MG TABLET PO SCH (08:02)
[2020-12-09] MEDS: LORATADINE 10 MG TABLET PO SCH (08:02)
[2020-12-09] MEDS: AMIODARONE 200 MG TABLET PO SCH (08:02)
[2020-12-09] MEDS: PANTOPRAZOLE 40 MG TABLET PO SCH (08:02)
[2020-12-09] MEDS: FUROSEMIDE 20 MG TABLET PO SCH (08:15)
[2020-12-09 08:46] LABS: Alanine Aminotransferase < 9 U/L (13-56); Albumin 2.3 G/DL (3.4-5.0); Alkaline Phosphatase 124 U/L (45-117); Aspartate Amino Transferase 17 U/L (0-37); Blood Urea Nitrogen 24 MG/DL (7-18); Calcium 8.7 MG/DL (8.5-10.1); Carbon Dioxide 28 MMOL/L (21-32); Estimated Glom Filtration Rate 44 ML/MIN; Glucose 90 MG/DL (74-106); Osmolality,Calculated 278.7 MOS/KG (273-304); Potassium 3.8 MMOL/L (3.5-5.1); Sodium 138 MMOL/L (136-145)
[2020-12-09] MEDS: TRAVOPROST 0.004% OPH SOLN 2.5 ML BOTTLE BOTH EYES SCH (20:13)
[2020-12-09] MEDS: VANCOMYCIN INJ 1,000 MG in SODIUM CHLORIDE 0.9% 250 ML IV SCH (20:13)
[2020-12-09] MEDS: TAMSULOSIN 0.4 MG CAPSULE PO SCH (20:14)
[2020-12-09] MEDS: ESCITALOPRAM 10 MG TABLET PO SCH (20:14)
[2020-12-09] MEDS: GABAPENTIN 400 MG CAPSULE PO SCH (20:14)
[2020-12-09] MEDS: ATORVASTATIN 20 MG TABLET PO SCH (20:14)
[2020-12-09] MEDS: traZODone 50 MG TABLET PO SCH (20:15)
[2020-12-10] MEDS: ALBUTEROL/IPRATROPIUM 3 ML NEB RESP TX SCH ×6 (03:01→23:15)
[2020-12-10] MEDS: CEFEPIME 1,000 MG in SODIUM CHLORIDE 0.9% 100 ML IV SCH ×4 (03:45→20:07)
[2020-12-10 04:31] LABS: ABG Base Excess 4.2 MMOL/L (-2.5-2.5); ABG HCO3 28.3 MMOL/L (20-26); ABG PCO2 43.8 MM HG (35-48); ABG PH 7.429 (7.35-7.45); ABG TCO2 26.6 MMOL/L (23-27); Allen Test Positive; Pt O2 Delivery Device Ventilator
[2020-12-10 04:55] LABS: Basophils % 0.7 % (0.0-0.8); Eosinophils # 0.1 10*3/uL (0.0-0.87); Hematocrit 29.5 VOL% (35.7-47.0); Hemoglobin 9.1 GM/DL (12.0-16.0); Immature Granulocytes % 0.8 %; Immature Granulocytes Absolute 0.05 #; Lymphocytes % 15.8 % (21.3-54.2); Mean Corpuscular HGB Conc 30.8 GM/DL (32-36); Mean Corpuscular Volume 94.9 FL (87-102); Mean Platelet Volume 9.8 FL (9.6-12.0); Monocytes % 6.3 % (1.7-12.7); Neutrophils % 74.4 % (38.7-73.9); Platelet Count 176 T/CUMM (130-400); Red Blood Count 3.11 MC/CUMM (3.8-5.5); Red Cell Distribution Width 14.5 % (9.3-17.3); White Blood Count 6.1 T/CUMM (4-12)
[2020-12-10 05:04] LABS: Calcium 7.7 MG/DL (8.5-10.1); Osmolality,Calculated 282.7 MOS/KG (273-304); Potassium 3.9 MMOL/L (3.5-5.1)
[2020-12-10] MEDS: LEVOTHYROXINE 200 MCG TABLET PO SCH (05:36)
[2020-12-10] MEDS: CLINDAMYCIN INJ 600 MG in PREMIX 1 EACH IV SCH ×3 (05:36→21:30)
[2020-12-10] MEDS: FUROSEMIDE 20 MG TABLET PO SCH (08:00)
[2020-12-10] MEDS: ASCORBIC ACID 500 MG TABLET PO SCH ×2 (08:00→20:08)
[2020-12-10] MEDS: LORATADINE 10 MG TABLET PO SCH (08:01)
[2020-12-10] MEDS: FERROUS SULFATE 325 MG TABLET PO SCH ×2 (08:01→20:07)
[2020-12-10] MEDS: COLESTIPOL 1 GM TABLET PO SCH ×2 (08:01→20:07)
[2020-12-10] MEDS: MAGNESIUM OXIDE 400 MG TABLET PO SCH (08:01)
[2020-12-10] MEDS: AMIODARONE 200 MG TABLET PO SCH (08:01)
[2020-12-10] MEDS: METOPROLOL TARTRATE 25 MG TABLET PO SCH (08:01)
[2020-12-10] MEDS ORDERED: DOCUSATE SODIUM 100 MG/10 ML UDCUP NG PRN (08:30)
[2020-12-10] MEDS: PANTOPRAZOLE 40 MG VIAL IV SCH (09:14)
[2020-12-10] MEDS: VANCOMYCIN INJ 1,000 MG in SODIUM CHLORIDE 0.9% 250 ML IV SCH (19:21)
[2020-12-10] MEDS: ESCITALOPRAM 10 MG TABLET PO SCH (20:07)
[2020-12-10] MEDS: traZODone 50 MG TABLET PO SCH (20:07)
[2020-12-10] MEDS: APIXABAN 2.5 MG TABLET PO SCH (20:07)
[2020-12-10] MEDS: TAMSULOSIN 0.4 MG CAPSULE PO SCH (20:07)
[2020-12-10] MEDS: ATORVASTATIN 20 MG TABLET PO SCH (20:07)
[2020-12-10] MEDS: GABAPENTIN 400 MG CAPSULE PO SCH (20:08)
[2020-12-10] MEDS: TRAVOPROST 0.004% OPH SOLN 2.5 ML BOTTLE BOTH EYES SCH (20:08)
[2020-12-11] MEDS: ALBUTEROL/IPRATROPIUM 3 ML NEB RESP TX SCH ×5 (03:00→19:50)
[2020-12-11] MEDS: CEFEPIME 1,000 MG in SODIUM CHLORIDE 0.9% 100 ML IV SCH ×4 (03:10→20:58)
[2020-12-11 04:08] LABS: Allen Test Positive; Pt O2 Delivery Device Ventilator
[2020-12-11 04:09] LABS: ABG Base Excess 3.3 MMOL/L (-2.5-2.5); ABG HCO3 27.4 MMOL/L (20-26); ABG Oxygen Saturation 97.3 % (95-100); ABG PCO2 35.7 MM HG (35-48); ABG PH 7.482 (7.35-7.45); ABG PO2 83.6 MM HG (80-95); ABG TCO2 24.4 MMOL/L (23-27)
[2020-12-11 04:51] LABS: Basophils % 0.4 % (0.0-0.8); Eosinophils # 0.2 10*3/uL (0.0-0.87); Eosinophils % 1.6 % (0.00-10.9); Hematocrit 29.7 VOL% (35.7-47.0); Hemoglobin 9.1 GM/DL (12.0-16.0); Immature Granulocytes Absolute 0.09 #; Lymphocytes # 1.3 10*3/uL (1.4-4.0); Lymphocytes % 13.5 % (21.3-54.2); Mean Corpuscular HGB Conc 30.6 GM/DL (32-36); Mean Corpuscular Volume 95.8 FL (87-102); Mean Platelet Volume 9.8 FL (9.6-12.0); Monocytes % 7.1 % (1.7-12.7); Neutrophils % 76.4 % (38.7-73.9); Platelet Count 211 T/CUMM (130-400); Red Cell Distribution Width 14.9 % (9.3-17.3); White Blood Count 9.3 T/CUMM (4-12)
[2020-12-11 05:18] LABS: Alanine Aminotransferase < 9 U/L (13-56); Albumin 1.8 G/DL (3.4-5.0); Alkaline Phosphatase 104 U/L (45-117); Aspartate Amino Transferase 12 U/L (0-37); Blood Urea Nitrogen 34 MG/DL (7-18); Calcium 7.7 MG/DL (8.5-10.1); Carbon Dioxide 27 MMOL/L (21-32); Estimated Glom Filtration Rate 24 ML/MIN; Glucose 97 MG/DL (74-106); Potassium 4.8 MMOL/L (3.5-5.1); Sodium 136 MMOL/L (136-145); Total Protein 5.5 G/DL (6.4-8.2)
[2020-12-11 05:25] LABS: Calcium 7.2 MG/DL (8.5-10.1); Osmolality,Calculated 282.7 MOS/KG (273-304); Potassium 5.1 MMOL/L (3.5-5.1)
[2020-12-11] MEDS: CLINDAMYCIN INJ 600 MG in PREMIX 1 EACH IV SCH (06:02)
[2020-12-11] MEDS: LEVOTHYROXINE 200 MCG TABLET PO SCH (06:02)
[2020-12-11] MEDS: MAGNESIUM OXIDE 400 MG TABLET PO SCH (09:19)
[2020-12-11] MEDS: FERROUS SULFATE 300 MG/5 ML UDCUP PO SCH ×2 (09:19→20:04)
[2020-12-11] MEDS: ACETAMINOPHEN 325 MG TABLET PO PRN (09:20)
[2020-12-11] MEDS: METOPROLOL TARTRATE 25 MG TABLET PO SCH (09:20)
[2020-12-11] MEDS: ASCORBIC ACID 500 MG TABLET PO SCH ×2 (09:21→20:04)
[2020-12-11] MEDS: AMIODARONE 200 MG TABLET PO SCH (09:21)
[2020-12-11] MEDS: APIXABAN 2.5 MG TABLET PO SCH ×2 (09:21→20:04)
[2020-12-11] MEDS: LORATADINE 10 MG TABLET PO SCH (09:22)
[2020-12-11] MEDS: COLESTIPOL 1 GM TABLET PO SCH ×2 (09:22→20:03)
[2020-12-11] MEDS: FUROSEMIDE 20 MG TABLET PO SCH (09:22)
[2020-12-11] MEDS: PANTOPRAZOLE 40 MG VIAL IV SCH (09:24)
[2020-12-11] MEDS: FERROUS SULFATE 325 MG TABLET PO SCH (10:06)
[2020-12-11] MEDS ORDERED: METOPROLOL TARTRATE 25 MG TABLET PO ONE (11:07)
[2020-12-11] MEDS: TAMSULOSIN 0.4 MG CAPSULE PO SCH (20:04)
[2020-12-11] MEDS: GABAPENTIN 400 MG CAPSULE PO SCH (20:04)
[2020-12-11] MEDS: ATORVASTATIN 20 MG TABLET PO SCH (20:04)
[2020-12-11] MEDS: traZODone 50 MG TABLET PO SCH (20:04)
[2020-12-11] MEDS: ESCITALOPRAM 10 MG TABLET PO SCH (20:04)
[2020-12-11] MEDS: TRAVOPROST 0.004% OPH SOLN 2.5 ML BOTTLE BOTH EYES SCH (20:58)
[2020-12-12] MEDS: ALBUTEROL/IPRATROPIUM 3 ML NEB RESP TX SCH ×7 (02:11→23:40)
[2020-12-12] MEDS: CEFEPIME 1,000 MG in SODIUM CHLORIDE 0.9% 100 ML IV SCH ×4 (03:20→21:00)
[2020-12-12 03:30] LABS: ABG Base Excess 0.7 MMOL/L (-2.5-2.5); ABG Oxygen Saturation 98.5 % (95-100); ABG PCO2 40.1 MM HG (35-48); ABG PH 7.408 (7.35-7.45); ABG PO2 99.5 MM HG (80-95); ABG TCO2 23.3 MMOL/L (23-27)
[2020-12-12 05:18] LABS: Basophils % 0.4 % (0.0-0.8); Eosinophils # 0.2 10*3/uL (0.0-0.87); Eosinophils % 2.2 % (0.00-10.9); Hemoglobin 8.8 GM/DL (12.0-16.0); Immature Granulocytes % 1.7 %; Immature Granulocytes Absolute 0.16 #; Lymphocytes # 1.3 10*3/uL (1.4-4.0); Lymphocytes % 13.7 % (21.3-54.2); Mean Corpuscular HGB Conc 30.3 GM/DL (32-36); Mean Corpuscular Volume 95.7 FL (87-102); Mean Platelet Volume 10.4 FL (9.6-12.0); Monocytes % 7.5 % (1.7-12.7); Neutrophils % 74.5 % (38.7-73.9); Platelet Count 208 T/CUMM (130-400); Red Blood Count 3.03 MC/CUMM (3.8-5.5); White Blood Count 9.4 T/CUMM (4-12)
[2020-12-12] MEDS: LEVOTHYROXINE 200 MCG TABLET PO SCH (05:41)
[2020-12-12 05:48] LABS: Calcium 7.5 MG/DL (8.5-10.1); Osmolality,Calculated 275.5 MOS/KG (273-304); Potassium 5.4 MMOL/L (3.5-5.1)
[2020-12-12] MEDS ORDERED: DEXTROSE 5% NACL 0.45% 1,000 ML IV SCH (09:00)
[2020-12-12] MEDS: FERROUS SULFATE 300 MG/5 ML UDCUP PO SCH ×2 (09:56→21:00)
[2020-12-12] MEDS: ASCORBIC ACID 500 MG TABLET PO SCH ×2 (09:56→21:00)
[2020-12-12] MEDS: METOPROLOL TARTRATE 25 MG TABLET PO SCH (09:56)
[2020-12-12] MEDS: APIXABAN 2.5 MG TABLET PO SCH ×2 (09:56→21:00)
[2020-12-12] MEDS: LORATADINE 10 MG TABLET PO SCH (09:57)
[2020-12-12] MEDS: COLESTIPOL 1 GM TABLET PO SCH ×2 (09:57→21:00)
[2020-12-12] MEDS: AMIODARONE 200 MG TABLET PO SCH (09:57)
[2020-12-12] MEDS: PANTOPRAZOLE 40 MG VIAL IV SCH (09:57)
[2020-12-12] MEDS: ALBUMIN 25% 25 GM in PREMIX 1 EACH IV SCH ×2 (10:18→17:41)
[2020-12-12] MEDS: MAGNESIUM OXIDE 400 MG TABLET PO SCH (10:35)
[2020-12-12] MEDS: DEXTROSE 5% NACL 0.45% 1,000 ML IV SCH (12:30)
[2020-12-12] MEDS: ATORVASTATIN 20 MG TABLET PO SCH (21:00)
[2020-12-12] MEDS: ESCITALOPRAM 10 MG TABLET PO SCH (21:00)
[2020-12-12] MEDS: GABAPENTIN 400 MG CAPSULE PO SCH (21:00)
[2020-12-12] MEDS: TRAVOPROST 0.004% OPH SOLN 2.5 ML BOTTLE BOTH EYES SCH (21:00)
[2020-12-12] MEDS: traZODone 50 MG TABLET PO SCH (21:00)
[2020-12-13] MEDS: DEXTROSE 5% NACL 0.45% 1,000 ML IV SCH (00:41)
[2020-12-13] MEDS: ALBUMIN 25% 25 GM in PREMIX 1 EACH IV SCH ×2 (01:30→15:59)
[2020-12-13] MEDS: ALBUTEROL/IPRATROPIUM 3 ML NEB RESP TX SCH ×5 (03:15→19:44)
[2020-12-13] MEDS: CEFEPIME 1,000 MG in SODIUM CHLORIDE 0.9% 100 ML IV SCH (03:17)
[2020-12-13 03:21] LABS: ABG Base Excess -3.9 MMOL/L (-2.5-2.5); ABG HCO3 21.1 MMOL/L (20-26); ABG Oxygen Saturation 96.4 % (95-100); ABG PCO2 35.4 MM HG (35-48); ABG PH 7.377 (7.35-7.45); ABG PO2 83.7 MM HG (80-95); ABG TCO2 19.5 MMOL/L (23-27)
[2020-12-13 04:04] LABS: Basophils % 0.3 % (0.0-0.8); Eosinophils # 0.2 10*3/uL (0.0-0.87); Eosinophils % 2.5 % (0.00-10.9); Hematocrit 24.7 VOL% (35.7-47.0); Hemoglobin 7.4 GM/DL (12.0-16.0); Immature Granulocytes % 2.2 %; Immature Granulocytes Absolute 0.15 #; Lymphocytes # 0.9 10*3/uL (1.4-4.0); Lymphocytes % 12.7 % (21.3-54.2); Mean Corpuscular Volume 96.1 FL (87-102); Mean Platelet Volume 10.7 FL (9.6-12.0); Monocytes % 7.5 % (1.7-12.7); Neutrophils % 74.8 % (38.7-73.9); Platelet Count 143 T/CUMM (130-400); Red Blood Count 2.57 MC/CUMM (3.8-5.5); Red Cell Distribution Width 15.1 % (9.3-17.3); White Blood Count 6.9 T/CUMM (4-12)
[2020-12-13 04:18] LABS: Calcium 6.9 MG/DL (8.5-10.1); Osmolality,Calculated 275.1 MOS/KG (273-304)
[2020-12-13 04:21] LABS: Potassium 5.9 MMOL/L (3.5-5.1)
[2020-12-13] MEDS: LEVOTHYROXINE 200 MCG TABLET PO SCH (05:55)
[2020-12-13] MEDS ORDERED: SODIUM POLYSTYRENE SULFATE 15 GM/60 ML BOTTLE PO ONE (09:07)
[2020-12-13] MEDS: LORATADINE 10 MG TABLET PO SCH (10:08)
[2020-12-13] MEDS: COLESTIPOL 1 GM TABLET PO SCH ×2 (10:08→21:50)
[2020-12-13] MEDS: AMIODARONE 200 MG TABLET PO SCH (10:08)
[2020-12-13] MEDS: FERROUS SULFATE 300 MG/5 ML UDCUP PO SCH ×2 (10:09→21:51)
[2020-12-13] MEDS: MAGNESIUM OXIDE 400 MG TABLET PO SCH (10:09)
[2020-12-13] MEDS: ASCORBIC ACID 500 MG TABLET PO SCH ×2 (10:09→21:51)
[2020-12-13] MEDS: METOPROLOL TARTRATE 25 MG TABLET PO SCH (10:09)
[2020-12-13] MEDS: APIXABAN 2.5 MG TABLET PO SCH ×2 (10:09→21:51)
[2020-12-13] MEDS: PANTOPRAZOLE 40 MG VIAL IV SCH (10:09)
[2020-12-13] MEDS: methylPREDNISolone SOD SUC 40 MG/1 ML VIAL IV SCH ×2 (10:09→18:03)
[2020-12-13 10:37] LABS: Calcium 7.3 MG/DL (8.5-10.1); Osmolality,Calculated 264.8 MOS/KG (273-304)
[2020-12-13 10:38] LABS: Potassium 5.9 MMOL/L (3.5-5.1)
[2020-12-13] MEDS: FUROSEMIDE 20 MG/2 ML VIAL IV SCH (16:30)
[2020-12-13] MEDS: ATORVASTATIN 20 MG TABLET PO SCH (21:51)
[2020-12-13] MEDS: GABAPENTIN 400 MG CAPSULE PO SCH (21:51)
[2020-12-13] MEDS: traZODone 50 MG TABLET PO SCH (21:51)
[2020-12-13] MEDS: ESCITALOPRAM 10 MG TABLET PO SCH (21:51)
[2020-12-13] MEDS: TRAVOPROST 0.004% OPH SOLN 2.5 ML BOTTLE BOTH EYES SCH (21:51)
[2020-12-14] MEDS: ALBUTEROL/IPRATROPIUM 3 ML NEB RESP TX SCH ×6 (00:17→19:16)
[2020-12-14] MEDS: ALBUMIN 25% 25 GM in PREMIX 1 EACH IV SCH ×2 (02:00→09:44)
[2020-12-14] MEDS: methylPREDNISolone SOD SUC 40 MG/1 ML VIAL IV SCH ×2 (02:30→09:44)
[2020-12-14] MEDS ORDERED: CEFEPIME 1,000 MG in SODIUM CHLORIDE 0.9% 100 ML IV SCH (03:00)
[2020-12-14] MEDS: LEVOTHYROXINE 200 MCG TABLET PO SCH (06:36)
[2020-12-14 06:59] LABS: Osmolality,Calculated 268.6 MOS/KG (273-304)
[2020-12-14 07:00] LABS: Potassium 6.1 MMOL/L (3.5-5.1)
[2020-12-14] MEDS ORDERED: SODIUM POLYSTYRENE SULFATE 15 GM/60 ML BOTTLE PO ONE (07:54)
[2020-12-14] MEDS ORDERED: CALCIUM CHLORIDE 1,000 MG/10 ML SYRINGE IV ONE ×2 (07:54→08:14)
[2020-12-14] MEDS ORDERED: SODIUM BICARBONATE 50 MEQ/50 ML VIAL IV ONE (07:54)
[2020-12-14] MEDS ORDERED: FUROSEMIDE 40 MG/4 ML VIAL IV ONE (08:49)
[2020-12-14] MEDS ORDERED: MORPHINE 4 MG/1 ML VIAL IV ONE (09:20)
[2020-12-14] MEDS ORDERED: LORazepam 2 MG/1 ML VIAL IV ONE (09:20)
[2020-12-14] MEDS ORDERED: LORazepam 2 MG/1 ML VIAL IV PRN (09:23)
[2020-12-14] MEDS ORDERED: LORazepam 2 MG/1 ML VIAL ONE (09:24)
[2020-12-14] MEDS: APIXABAN 2.5 MG TABLET PO SCH (09:44)
[2020-12-14] MEDS: METOPROLOL TARTRATE 25 MG TABLET PO SCH (09:44)
[2020-12-14] MEDS: AMIODARONE 200 MG TABLET PO SCH (09:44)
[2020-12-14] MEDS: LORATADINE 10 MG TABLET PO SCH (09:44)
[2020-12-14] MEDS: MAGNESIUM OXIDE 400 MG TABLET PO SCH (09:44)
[2020-12-14] MEDS: PANTOPRAZOLE 40 MG VIAL IV SCH (09:44)
[2020-12-14] MEDS: COLESTIPOL 1 GM TABLET PO SCH (09:52)
[2020-12-14] MEDS: FUROSEMIDE 20 MG/2 ML VIAL IV SCH (09:53)
[2020-12-14] MEDS: FERROUS SULFATE 300 MG/5 ML UDCUP PO SCH (09:53)
[2020-12-14] MEDS: ASCORBIC ACID 500 MG TABLET PO SCH (09:53)
[2020-12-14] MEDS: MORPHINE 4 MG/1 ML VIAL IV PRN ×4 (11:24→21:19)
[2020-12-14] MEDS ORDERED: ATROPINE 1 % OPH SOLN 5 ML BOTTLE SL PRN (11:56)
[2020-12-14 20:31] VITALS: BP 92/39
[2020-12-15] MEDS: MORPHINE 4 MG/1 ML VIAL IV PRN ×2 (00:21→02:35)
[2020-12-15] MEDS: ALBUTEROL/IPRATROPIUM 3 ML NEB RESP TX SCH ×2 (00:28→03:17)
== END 2020-12-15 03:30 | disposition expired | DRG 291 ==
LOC: N.ED 10:54 → N.TELEN 14:42 → SUATTDRO 14:42 → N.TELEN 15:30 → N.ICU 12-08 18:15 → N.4E 12-14 11:51
PROVIDERS: ADMIT Internal Medicine Geriatric Medicine; ATTEND Hospitalist